=== PATIENT | female | born 1945 | race Hispanic/Latino ===

== ENCOUNTER 2018-03-24 14:44 | Emergency (ER) | payer OTHER ==
--- NOTE | 2018-03-24 16:36 | ER ---
Nurse's Notes [facility] Name: Jayla Torres Age: 72 yrs Sex: Female : 1945 Arrival Date: 03/24/2018 Time: 14:47 Bed 23 Private MD: Diagnosis: Strain of adductor muscle, fascia and tendon of right thigh Presentation: 03/24 14:52 Presenting complaint: Patient states: "I hurt my right leg carrying something heavy aa5 this morning". pt c/o right leg pain, denies fall. Transition of care: patient was not received from another setting of care. Onset of symptoms was March 24, 2018. Risk Assessment: Do you want to hurt yourself or someone else? Patient reports no desire to harm self or others. Initial Sepsis Screen: Does the patient meet any 2 criteria? No. Patient's initial sepsis screen is negative. Does the patient have a suspected source of infection? No. Patient's initial sepsis screen is negative. Care prior to arrival: None. 14:52 Method Of Arrival: Wheelchair aa5 14:52 Acuity: LIZETH 4 aa5 Historical: - Allergies: 14:53 No Known Allergies; aa5 - PMHx: 14:53 Diabetes - NIDDM; Hypertension; aa5 - PSHx: 14:53 ; Hernia repair; Tubal ligation; aa5 - Immunization history:: Adult Immunizations up to date. - Social history:: Smoking status: Patient/guardian denies using tobacco. - Ebola Screening: : No symptoms or risks identified at this time. Screenin:11 Abuse screen: Denies threats or abuse. Denies injuries from another. Nutritional mg2 screening: No deficits noted. Tuberculosis screening: No symptoms or risk factors identified. Fall Risk Gait- Weak (10 pts.). Assessment: 16:09 General: Appears in no apparent distress. comfortable, Behavior is calm, cooperative. mg2 Pain: Complains of pain in right leg and right hamstring Pain does not radiate. Pain currently is 3 out of 10 on a pain scale. Quality of pain is described as aching, Pain began since 7 am Is intermittent, Alleviated by rest, Aggravated by increased activity, repositioning, weight bearing. Neuro: Level of Consciousness is awake, alert, obeys commands, Oriented to person, place, time, situation. Cardiovascular: Capillary refill < 3 seconds Patient's skin is warm and dry. Respiratory: Airway is patent Respiratory effort is even, unlabored, Respiratory pattern is regular, symmetrical. GI: No deficits noted. : No deficits noted. EENT: No deficits noted. Derm: Skin is intact, is healthy with good turgor, Skin is pink, warm \\T\\ dry. normal. Musculoskeletal: Circulation, motion, and sensation intact. Capillary refill < 3 seconds. Injury Description: pain. Vital Signs: 14:53 BP 133 / 75; Pulse 72; Resp 18 S; Temp 98.2(TE); Pulse Ox 98% on R/A; Weight 72.57 kg aa5 (R); Pain 0/10; 16:40 BP 122 / 79; Pulse 60; Resp 18; Pulse Ox 100% on R/A; Pain 2/10; mg2 14:53 Pt reports pain only with movement aa5 ED Course: 14:47 Patient arrived in ED. mr 14:52 Triage completed. aa5 15:19 Smith[facility] Shaw [facility]C [facility] snw 15:19 Devonte Greer MD is Attending Physician. snw 15:56 Lumbar Spine (3 Views) XRAY In Process Unspecified. EDMS 15:56 Femur Right XRAY In Process Unspecified. EDMS 16:06 Lake Gonzales, ABDI is Primary Nurse. mg2 16:06 Arm band placed on. mg2 16:10 No provider procedures requiring assistance completed. Patient did not have IV access mg2 during this emergency room visit. 16:11 Patient has correct armband on for positive identification. mg2 16:53 Jorge wrap to right thigh. mg2 Administered Medications: No medications were administered Outcome: 16:35 Discharge ordered by . snw 16:53 Discharged to home via wheelchair, with family. mg2 16:53 Condition: stable 16:53 Discharge instructions given to patient, family, Instructed on discharge instructions, follow up and referral plans. medication usage, Demonstrated understanding of instructions, follow-up care, medications, Prescriptions given X 1. 16:54 Patient left the ED. mg2 Signatures: Dispatcher [employer] EDMS Smitha Shaw FNP-C [employer]-Wilder Marni OjedaKatalina RN RN aa5 Lake Gonzales RN RN mg2
--- NOTE | 2018-03-24 16:36 | EDPHYS ---
Physician Documentation [facility] Name: Jayla Torres Age: 72 yrs Sex: Female : 1945 Arrival Date: 03/24/2018 Time: 14:47 Bed 23 Private MD: ED Physician Devonte Greer HPI: 03/24 15:40 This 72 yrs old Female presents to ER via Wheelchair with complaints of Leg snw Pain. 15:40 The patient presents with pain, that is acute. The complaints affect the right snw hamstring. Context: The problem was sustained outdoors, resulted from lifting something heavy, the patient can fully bear weight, the patient is able to ambulate, Problem is a result from a previous injury: No. Onset: The symptoms/episode began/occurred suddenly, today. Associated signs and symptoms: The patient has no apparent associated signs or symptoms. Treatment prior to arrival includes: no previous treatment. Severity of symptoms: At their worst the symptoms were moderate. The patient has not experienced similar symptoms in the past. It is unknown whether or not the patient has recently seen a physician. Historical: - Allergies: 14:53 No Known Allergies; aa5 - PMHx: 14:53 Diabetes - NIDDM; Hypertension; aa5 - PSHx: 14:53 ; Hernia repair; Tubal ligation; aa5 - Immunization history:: Adult Immunizations up to date. - Social history:: Smoking status: Patient/guardian denies using tobacco. - Ebola Screening: : No symptoms or risks identified at this time. ROS: 15:40 Constitutional: Negative for fever, chills, and weight loss, Eyes: Negative for injury, snw pain, redness, and discharge, ENT: Negative for injury, pain, and discharge, Neck: Negative for injury, pain, and swelling, Cardiovascular: Negative for chest pain, palpitations, and edema, Respiratory: Negative for shortness of breath, cough, wheezing, and pleuritic chest pain, Abdomen/GI: Negative for abdominal pain, nausea, vomiting, diarrhea, and constipation, Back: Negative for injury and pain, : Negative for injury, bleeding, discharge, and swelling, Skin: Negative for injury, rash, and discoloration, Neuro: Negative for headache, weakness, numbness, tingling, and seizure. 15:40 MS/extremity: Positive for injury or acute deformity, pain, of the right hamstring. Exam: 15:39 Constitutional: This is a well developed, well nourished patient who is awake, alert, snw and in no acute distress. Head/Face: Normocephalic, atraumatic. Eyes: Pupils equal round and reactive to light, extra-ocular motions intact. Lids and lashes normal. Conjunctiva and sclera are non-icteric and not injected. Cornea within normal limits. Periorbital areas with no swelling, redness, or edema. ENT: Nares patent. No nasal discharge, no septal abnormalities noted. Tympanic membranes are normal and external auditory canals are clear. Oropharynx with no redness, swelling, or masses, exudates, or evidence of obstruction, uvula midline. Mucous membranes moist. Neck: Trachea midline, no thyromegaly or masses palpated, and no cervical lymphadenopathy. Supple, full range of motion without nuchal rigidity, or vertebral point tenderness. No Meningismus. Chest/axilla: Normal chest wall appearance and motion. Nontender with no deformity. No lesions are appreciated. Cardiovascular: Regular rate and rhythm with a normal S1 and S2. No gallops, murmurs, or rubs. Normal PMI, no JVD. No pulse deficits. Respiratory: Lungs have equal breath sounds bilaterally, clear to auscultation and percussion. No rales, rhonchi or wheezes noted. No increased work of breathing, no retractions or nasal flaring. Abdomen/GI: Soft, non-tender, with normal bowel sounds. No distension or tympany. No guarding or rebound. No evidence of tenderness throughout. Back: No spinal tenderness. No costovertebral tenderness. Full range of motion. Skin: Warm, dry with normal turgor. Normal color with no rashes, no lesions, and no evidence of cellulitis. Neuro: Awake and alert, GCS 15, oriented to person, place, time, and situation. Cranial nerves II-XII grossly intact. Motor strength 5/5 in all extremities. Sensory grossly intact. Cerebellar exam normal. Normal gait. Psych: Awake, alert, with orientation to person, place and time. Behavior, mood, and affect are within normal limits. 15:39 Musculoskeletal/extremity: Extremities: grossly normal except: noted in the right hamstring: pain, ROM: no acute changes, Circulation is intact in all extremities. Sensation intact. Vital Signs: 14:53 BP 133 / 75; Pulse 72; Resp 18 S; Temp 98.2(TE); Pulse Ox 98% on R/A; Weight 72.57 kg aa5 (R); Pain 0/10; 16:40 BP 122 / 79; Pulse 60; Resp 18; Pulse Ox 100% on R/A; Pain 2/10; mg2 14:53 Pt reports pain only with movement aa5 MDM: 15:19 Patient medically screened. snw 16:38 Data reviewed: vital signs, nurses notes. Data interpreted: Pulse oximetry: on room air snw is 98 %. Interpretation: normal. Counseling: I had a detailed discussion with the patient and/or guardian regarding: the historical points, exam findings, and any diagnostic results supporting the discharge/admit diagnosis, radiology results, the need for outpatient follow up, to return to the emergency department if symptoms worsen or persist or if there are any questions or concerns that arise at home. Special discussion: Based on the history and exam findings, there is no indication for further emergent testing or inpatient evaluation. I discussed with the patient/guardian the need to see the primary care provider for further evaluation of the symptoms. 11 15:06 Order name: Lumbar Spine (3 Views) XRAY snw 03/24 15:25 Order name: Femur Right XRAY snw 03/24 16:53 Order name: Jorge Wrap; Complete Time: 16:53 mg2 Administered Medications: No medications were administered Disposition: 17:08 Co-signature as Attending Physician, Devonte Greer MD. rn Disposition: 03/24/18 16:35 Discharged to Home. Impression: Strain of adductor muscle, fascia and tendon of right thigh. - Condition is Stable. - Discharge Instructions: Hamstring Strain, RICE for Routine Care of Injuries, Heat Therapy. - Prescriptions for Diclofenac Sodium 75 mg Oral Tablet, Delayed Release (E.C.) - take 1 tablet by ORAL route 2 times per day; 10 tablet. - Medication Reconciliation Form, Thank You Letter, Antibiotic Education, Prescription Opioid Use form. - Follow up: Private Physician; When: 1 - 2 days; Reason: Recheck today's complaints, Continuance of care, Re-evaluation by your physician. Follow up: Emergency Department; When: As needed; Reason: Worsening of condition. Signatures: Dispatcher [employer] EDSmitha Vernon, WAITER/WAITRESS CABIN CLASS-C WAITER/WAITRESS CABIN CLASS-Csnw Devonte Greer MD MD rn Calderon, Audri RN RN aa5 Lake Gonzales, ABDI RN mg2 Corrections: (The following items were deleted from the chart) 16:54 16:35 03/24/2018 16:35 Discharged to Home. Impression: Strain of adductor muscle, mg2 fascia and tendon of right thigh. Condition is Stable. Forms are Medication Reconciliation Form, Thank You Letter, Antibiotic Education, Prescription Opioid Use. Follow up: Private Physician; When: 1 - 2 days; Reason: Recheck today's complaints, Continuance of care, Re-evaluation by your physician. Follow up: Emergency Department; When: As needed; Reason: Worsening of condition. snw
--- NOTE | 2018-03-24 17:35 | RAD REPORT ---
EXAM DESCRIPTION: RAD - Femur Right - 03/24/2018 3:58 pm CLINICAL HISTORY: PAIN COMPARISON: No comparisons FINDINGS: Moderate osteoarthritis affects the right hip joint. No fracture, dislocation or AVN. IMPRESSION: Moderate osteoarthritis.
--- NOTE | 2018-03-24 17:37 | RAD REPORT ---
EXAM DESCRIPTION: RAD - Lumbar Spine 3 Views - 03/24/2018 4:02 pm CLINICAL HISTORY: Pain;Radiculopathy Radiculopathy COMPARISON: No comparisons FINDINGS: Diffuse osteopenia is seen. Prominent lower lumbosacral degenerative changes present. No a cute compression deformity seen. Aortic atherosclerosis. IMPRESSION: No acute lumbar spine abnormality. Diffuse osteopenia.
== END 2018-03-24 16:54 | disposition home or self-care (01) ==
LOC: ER 14:44
DX: S76.211A Strain of adductor muscle, fascia and tendon of right thigh, initial encounter (principal); X50.0XXA Overexertion from strenuous movement or load, initial encounter; Y92.89 Other specified places as the place of occurrence of the external cause; E11.9 Type 2 diabetes mellitus without complications; I10 Essential (primary) hypertension; M16.11 Unilateral primary osteoarthritis, right hip; M85.88 Other specified disorders of bone density and structure, other site
CPT/HCPCS: 72100; 99283

== ENCOUNTER 2018-07-11 19:50 | Emergency (ER) | payer OTHER ==
[2018-07-11 21:36] LABS: Absolute Lymphocytes (CBC) 1.7 K/uL (0.7-4.9); Absolute Monocytes 0.4 K/uL (0.1-1.3); Absolute Neutrophil 3.6 K/uL (1.8-8.0); Basophils % 0.5 % (0-1.3); Eosinophils % 0.7 % (0-4.4); Hematocrit 39.3 % (36.0-45.0); Lymphocytes % 29.6 % (15.3-44.8); MPV 9.4 fL (7.6-11.3); Monocytes % 7.1 % (3.3-12.3); RBC Red Blood Cell Count 4.19 M/uL (3.86-4.86)
[2018-07-11 22:28] LABS: BUN Blood Urea Nitrogen 13 mg/dL (7-18); Bicarbonate 29 mmol/L (21-32); Glucose Level 162 mg/dL (74-106); Magnesium 1.8 mg/dL (1.8-2.4); Potassium 4.2 mmol/L (3.5-5.1); Sodium Level 140 mmol/L (136-145); Troponin I < 0.02 ng/mL (0.0-0.045)
[2018-07-11 22:37] LABS: Urine Blood NEGATIVE (NEG); Urine Glucose NEGATIVE (NEG); Urine Protein NEGATIVE (NEG)
--- NOTE | 2018-07-11 23:31 | EDPHYS ---
Physician Documentation [facility] Name: Jayla Torres Age: 72 yrs Sex: Female : 1945 Arrival Date: 07/11/2018 Time: 19:52 Bed 25 Private MD: ED Physician Moustapha Ybarra HPI: 07/11 20:52 This 72 yrs old Female presents to ER via Ambulatory with complaints of High cp Blood Pressure. 20:52 The patient has elevated blood pressure and discovered this at home, with a home device.cp 20:52 Onset: The symptoms/episode began/occurred today, 1 hour(s) ago. Associated signs and cp symptoms: Pertinent positives: dizziness, headache, Pertinent negatives: chest pain, visual changes, vomiting, weakness. 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 Patient reports having difficulty sleeping last night, so she was told she could take OTC melatonin by PCP. Patient reports taking melatonin about 1800 tonight. 20:55 Patient also c/o right shoulder pain times 4 weeks that is worse with use. Denies cp injury. Historical: - Allergies: 19:59 No Known Allergies; ed1 - Home Meds: 19:59 amlodipine 5 mg tab 1 tab once daily [Active]; glipizide 5 mg Oral tr24 2 tabs once ed1 daily [Active]; lovastatin 20 mg Oral tab 1 tab once daily [Active]; losartan 50 mg oral tab 1 tab once daily [Active]; metformin 1,000 mg Oral tab 1 tab 2 times per day [Active]; aspirin 325 mg Oral tab 1 tab once daily [Active]; - PMHx: 19:59 Diabetes - NIDDM; Hypertension; ed1 - PSHx: 19:59 ; Hernia repair; ed1 - Immunization history:: Adult Immunizations unknown, Flu vaccine is up to date. - Social history:: Smoking status: Patient/guardian denies using tobacco. - Ebola Screening: : Patient negative for fever greater than or equal to 101.5 degrees Fahrenheit, and additional compatible Ebola Virus Disease symptoms Patient denies exposure to infectious person Patient denies travel to an Ebola-affected area in the 21 days before illness onset No symptoms or risks identified at this time. ROS: 20:55 Cardiovascular: Negative for chest pain, palpitations. cp 20:55 Eyes: Negative for injury, pain, redness, and discharge. cp 20:55 Constitutional: Negative for body aches, chills, fever, poor PO intake. 20:55 ENT: Negative for drainage from ear(s), ear pain, sore throat, difficulty swallowing, difficulty handling secretions. 20:55 Respiratory: Negative for cough, shortness of breath, wheezing. 20:55 Abdomen/GI: Negative for abdominal pain, nausea, vomiting, and diarrhea, constipation. 20:55 Back: Negative for pain at rest, pain with movement. 20:55 Skin: Negative for cellulitis, rash. 20:55 Neuro: Positive for dizziness, headache, Negative for altered mental status, speech changes, syncope, near syncope, weakness. 20:55 All other systems are negative. Exam: 21:00 Constitutional: The patient appears in no acute distress, alert, awake, cp non-diaphoretic, non-toxic, well developed, well nourished, drowsy 21:00 Head/Face: Normocephalic, atraumatic. Eyes: Pupils equal round and reactive to light, cp extra-ocular motions intact. Lids and lashes normal. Conjunctiva and sclera are non-icteric and not injected. Cornea within normal limits. Periorbital areas with no swelling, redness, or edema. ENT: Nares patent. No nasal discharge, no septal abnormalities noted. Tympanic membranes are normal and external auditory canals are clear. Oropharynx with no redness, swelling, or masses, exudates, or evidence of obstruction, uvula midline. Mucous membranes moist. Neck: Trachea midline, no thyromegaly or masses palpated, and no cervical lymphadenopathy. Supple, full range of motion without nuchal rigidity, or vertebral point tenderness. No Meningismus. Chest/axilla: Normal chest wall appearance and motion. Nontender with no deformity. No lesions are appreciated. 21:00 Cardiovascular: Rate: bradycardic, Rhythm: regular, Pulses: Pulses are 2+ in right radial artery and left radial artery. Heart sounds: murmur, not appreciated, Edema: is not appreciated, JVD: is not appreciated. 21:00 Respiratory: the patient does not display signs of respiratory distress, Respirations: normal, no use of accessory muscles, no retractions, no splinting, no tachypnea, labored breathing, is not present, Breath sounds: are clear throughout, no decreased breath sounds, no stridor, no wheezing. 21:00 Abdomen/GI: Inspection: abdomen appears normal, Palpation: abdomen is soft and non-tender, in all quadrants. 21:00 Back: pain, is absent, ROM is normal. 21:00 Skin: cellulitis, is not appreciated, no rash present. 21:00 Neuro: Orientation: to person, place \T\ time. Mentation: sleepy, Memory: is normal, Cerebellar function: is grossly normal, Motor: moves all fours, strength is normal, Sensation: is normal. 21:00 Musculoskeletal/extremity: Extremities: grossly normal except: noted in the right cp shoulder: tenderness, pain with straight arm raise, There is no evidence of decreased ROM, deformity. 21:42 ECG was reviewed by the Attending Physician. cp Vital Signs: 19:59 BP 135 / 81; Pulse 62; Resp 16; Temp 97.9; Pulse Ox 97% on R/A; Weight 77.11 kg; Height ed1 5 ft. 5 in. (165.10 cm); Pain 3/10; 20:17 BP 140 / 69; Pulse 57; Resp 16; Pulse Ox 98% on R/A; Pain 0/10; lp1 21:00 BP 134 / 69; Pulse 57; Resp 16; Pulse Ox 97% on R/A; lp1 22:00 BP 138 / 75; Pulse 52; Resp 18; Pulse Ox 98% on R/A; lp1 22:08 BP 138 / 75 Supine; Pulse 49; Resp 18; Pulse Ox 98% on R/A; mg2 22:08 BP 141 / 78 Sitting; Pulse 53; Resp 18; Pulse Ox 98% on R/A; mg2 22:08 BP 128 / 75 Standing; Pulse 63; Resp 18; Pulse Ox 98% on R/A; mg2 23:45 BP 129 / 78; Pulse 80; Resp 18; Pulse Ox 100% on R/A; Pain 0/10; mg2 19:59 Body Mass Index 28.29 (77.11 kg, 165.10 cm) ed1 MDM: 20:17 Patient medically screened. cp 21:00 Differential diagnosis: hypertensive crisis, Malignant HTN, CVA, intracerebral cp hemorrhage. 23:30 Data reviewed: vital signs, nurses notes, lab test result(s), EKG, radiologic studies, cp CT scan, plain films. 23:30 Test interpretation: by ED physician or midlevel provider: ECG, plain radiologic cp studies. Counseling: I had a detailed discussion with the patient and/or guardian regarding: the historical points, exam findings, and any diagnostic results supporting the discharge/admit diagnosis, lab results, radiology results, the need for outpatient follow up, a family practitioner, to return to the emergency department if symptoms worsen or persist or if there are any questions or concerns that arise at home. Response to treatment: the patient's symptoms have markedly improved after treatment, and as a result, I will discharge patient. 07/11 20:52 Order name: CBC with Diff cp 07/11 20:52 Order name: BMP cp 07/11 20:52 Order name: Magnesium cp 07/11 20:52 Order name: Troponin I cp 07/11 21:38 Order name: CBC with Automated Diff; Complete Time: 22:43 EDMS 07/11 22:29 Order name: Urine Dipstick--Ancillary (enter results) ar5 07/11 20:52 Order name: EKG; Complete Time: 20:53 cp 07/11 20:52 Order name: EKG - Nurse/Tech; Complete Time: 21:45 cp 07/11 20:52 Order name: XRAY Shoulder RIGHT 2 view cp 07/11 20:52 Order name: CT Head Brain wo Cont cp 07/11 22:29 Order name: Basic Metabolic Panel; Complete Time: 22:43 EDMS 07/11 22:43 Interpretation: Normal except: GLUC 162. cp 07/11 22:29 Order name: Troponin I; Complete Time: 22:43 EDMS 07/11 22:29 Order name: Magnesium; Complete Time: 22:43 EDMS 07/11 22:37 Order name: Urine Dipstick-Ancillary; Complete Time: 22:43 EDMS 07/11 20:52 Order name: Orthostatics; Complete Time: 22:10 cp 07/11 20:52 Order name: Urine Dipstick-Ancillary (obtain specimen); Complete Time: 22:15 cp EC:42 Rate is 49 beats/min. Rhythm is regular. UT interval is normal. QRS interval is normal. cp QT interval is normal. Interpreted by me. Reviewed by me. Administered Medications: No medications were administered Disposition: 07/12 03:36 Co-signature as Attending Physician, Moustapha Ybarra MD. Disposition: 07/11/18 23:30 Discharged to Home. Impression: Pain in right shoulder, Hypertensive heart disease. - Condition is Stable. - Discharge Instructions: Hypertension, Shoulder Pain, How to Take Your Blood Pressure, [id number], Aspirin and Your Heart, Managing Your Hypertension. - Prescriptions for Ibuprofen 800 mg Oral Tablet - take 1 tablet by ORAL route every 8 hours As needed take with food; 30 tablet. - Medication Reconciliation Form, Thank You Letter, Antibiotic Education, Prescription Opioid Use form. - Follow up: Private Physician; When: 07-14-2018; Reason: Recheck today's complaints. - Problem is new. - Symptoms have improved. Signatures: Dispatcher [employer] EDMS Linnea Veras RN RN ed1 Marshall Orozco PA PA cp Starr, Gregory, MD MD Lake Gonzales RN RN mg2 Corrections: (The following items were deleted from the chart) 07/11 23:46 23:30 07/11/2018 23:30 Discharged to Home. Impression: Pain in right shoulder; mg2 Hypertensive heart disease. Condition is Stable. Forms are Medication Reconciliation Form, Thank You Letter, Antibiotic Education, Prescription Opioid Use. Follow up: Private Physician; When: 07-14-2018; Reason: Recheck today's complaints. Problem is new. Symptoms have improved. cp 07/12 17:38 07/10 21:02 Constitutional: The patient appears in no acute distress, alert, awake, cp non-diaphoretic, non-toxic, well developed, well nourished, cp 07/12 17:38 07/10 21:02 Head/Face: Normocephalic, atraumatic. cp cp 07/12 17:38 07/10 21:02 Eyes: Periorbital structures: appear normal, Pupils: equal, round, and cp reactive to light and accomodation, Extraocular movements: intact throughout, Conjunctiva: normal, no exudate, no injection, Sclera: no appreciated abnormality, Lids and lashes: appear normal, bilaterally, cp 07/12 17:38 07/10 21:02 ENT: External ear(s): are unremarkable, Ear canal(s): are normal, clear, cp TM's: are normal, no evidence of bulging, no erythema, Nose: is normal, Mouth: is normal, Posterior pharynx: is normal, airway is patent, no erythema, no exudate, cp 07/12 17:38 07/10 21:02 Neck: ROM/movement: is normal, is supple, without pain, no range of motions cp limitations, no meningismus, no nuchal rigidity, cp 07/12 17:07/10 21:02 Chest/axilla: Inspection: normal, Palpation: is normal, no crepitus, no cp tenderness, cp 07/12 16:38 07/10 21:02 Cardiovascular: Rate: normal, Rhythm: regular, Pulses: Pulses are 2+ in cp right radial artery and left radial artery. Heart sounds: murmur, not appreciated, Edema: is not appreciated, JVD: is not appreciated, cp
--- NOTE | 2018-07-11 23:31 | ER ---
Nurse's Notes [facility] Name: Jayla Torres Age: 72 yrs Sex: Female : 1945 Arrival Date: 07/11/2018 Time: 19:52 Bed 25 Private MD: Diagnosis: Pain in right shoulder;Hypertensive heart disease Presentation: 07/11 19:55 Presenting complaint: Child states: She has problems with her high blood pressure. She ed1 is also having nausea. Denies chest pain. She also has a slight headache. Transition of care: patient was not received from another setting of care. Onset of symptoms was July 10, 2018. Risk Assessment: Do you want to hurt yourself or someone else? Patient reports no desire to harm self or others. Initial Sepsis Screen: Does the patient meet any 2 criteria? No. Patient's initial sepsis screen is negative. Does the patient have a suspected source of infection? No. Patient's initial sepsis screen is negative. Care prior to arrival: None. 19:55 Method Of Arrival: Ambulatory ed1 19:55 Acuity: LIZETH 3 ed1 Triage Assessment: 19:59 General: Appears in no apparent distress. Behavior is calm, cooperative. Pain: ed1 Complains of pain in head Pain currently is 3 out of 10 on a pain scale. Historical: - Allergies: 19:59 No Known Allergies; ed1 - Home Meds: 19:59 amlodipine 5 mg tab 1 tab once daily [Active]; glipizide 5 mg Oral tr24 2 tabs once ed1 daily [Active]; lovastatin 20 mg Oral tab 1 tab once daily [Active]; losartan 50 mg oral tab 1 tab once daily [Active]; metformin 1,000 mg Oral tab 1 tab 2 times per day [Active]; aspirin 325 mg Oral tab 1 tab once daily [Active]; - PMHx: 19:59 Diabetes - NIDDM; Hypertension; ed1 - PSHx: 19:59 ; Hernia repair; ed1 - Immunization history:: Adult Immunizations unknown, Flu vaccine is up to date. - Social history:: Smoking status: Patient/guardian denies using tobacco. - Ebola Screening: : Patient negative for fever greater than or equal to 101.5 degrees Fahrenheit, and additional compatible Ebola Virus Disease symptoms Patient denies exposure to infectious person Patient denies travel to an Ebola-affected area in the 21 days before illness onset No symptoms or risks identified at this time. Screenin:16 Abuse screen: Denies threats or abuse. Denies injuries from another. Nutritional lp1 screening: No deficits noted. Tuberculosis screening: No symptoms or risk factors identified. Fall Risk None identified. Assessment: 20:12 General: Appears in no apparent distress. Behavior is appropriate for age. Pain: Denies lp1 pain. Neuro: Level of Consciousness is awake, alert, obeys commands, Oriented to person, place, time, situation, Patient states headache now resolved. Cardiovascular: Patient's skin is warm and dry. Respiratory: Respiratory effort is even, unlabored. GI: No signs and/or symptoms were reported involving the gastrointestinal system. : No signs and/or symptoms were reported regarding the genitourinary system. EENT: No signs and/or symptoms were reported regarding the EENT system. Derm: Skin is pink, warm \T\ dry. Musculoskeletal: Circulation, motion, and sensation intact. 21:00 Reassessment: Patient appears in no apparent distress at this time. Patient is alert, lp1 oriented x 3, equal unlabored respirations, skin warm/dry/pink. Patient states feeling better. 23:45 Reassessment: Patient denies pain at this time. mg2 Vital Signs: 19:59 BP 135 / 81; Pulse 62; Resp 16; Temp 97.9; Pulse Ox 97% on R/A; Weight 77.11 kg; Height ed1 5 ft. 5 in. (165.10 cm); Pain 3/10; 20:17 BP 140 / 69; Pulse 57; Resp 16; Pulse Ox 98% on R/A; Pain 0/10; lp1 21:00 BP 134 / 69; Pulse 57; Resp 16; Pulse Ox 97% on R/A; lp1 22:00 BP 138 / 75; Pulse 52; Resp 18; Pulse Ox 98% on R/A; lp1 22:08 BP 138 / 75 Supine; Pulse 49; Resp 18; Pulse Ox 98% on R/A; mg2 22:08 BP 141 / 78 Sitting; Pulse 53; Resp 18; Pulse Ox 98% on R/A; mg2 22:08 BP 128 / 75 Standing; Pulse 63; Resp 18; Pulse Ox 98% on R/A; mg2 23:45 BP 129 / 78; Pulse 80; Resp 18; Pulse Ox 100% on R/A; Pain 0/10; mg2 19:59 Body Mass Index 28.29 (77.11 kg, 165.10 cm) ed1 ED Course: 19:52 Patient arrived in ED. as 19:57 Triage completed. ed1 20:00 Arm band placed on left wrist. ed1 20:16 Patient has correct armband on for positive identification. Placed in gown. Bed in low lp1 position. Pulse ox on. NIBP on. 20:17 Marshall Orozco PA is PHCP. cp 20:17 Moustapha Ybarra MD is Attending Physician. cp 20:53 Bibi Camargo, RN is Primary Nurse. lp1 20:[address] vm2 21:07 CT completed. Patient tolerated procedure well. Patient moved to radiology. nj 21:25 Initial lab(s) drawn, by me, sent to lab. lp1 21:45 Warm blanket given. Pillow given. field account director on. jp3 21:45 EKG done, by ED staff, reviewed by Marshall GODOY. jp3 22:29 No provider procedures requiring assistance completed. mg2 23:45 Patient did not have IV access during this emergency room visit. mg2 07/12 02:34 XRAY Shoulder RIGHT 2 view In Process Unspecified. EDMS 02:34 CT Head Brain wo Cont In Process Unspecified. EDMS Administered Medications: No medications were administered Outcome: 07/11 23:30 Discharge ordered by MD. cp 23:45 Discharged to home ambulatory, with family. mg2 23:45 Condition: stable 23:45 Discharge instructions given to patient, family, Instructed on discharge instructions, follow up and referral plans. medication usage, Demonstrated understanding of instructions, follow-up care, medications, Prescriptions given X 1. 23:46 Patient left the ED. mg2 Signatures: Dispatcher [employer] EDMS Lashonda Mancilla Erika RN RN ed1 Bibi Camargo, RN RN lp1 Marshall Orozco PA PA cp Jordan, Nathan nj McGuire, Victoria 2 [place] RN RN mg2 Jacques Fallon jp3 Corrections: (The following items were deleted from the chart) 20:17 20:17 BP 140 / 69; Pulse 57bpm; Resp 16bpm; Pulse Ox 98% RA; lp1 lp1
--- NOTE | 2018-07-12 08:55 | EKG ---
Test Date: 2018-07-11 Test Time: 21:35:32 Branch Logistics Supervisor: BING MEASUREMENT RESULTS: Intervals: Rate: 49 OK: 174 QRSD: 94 QT: 486 QTc: 439 Thornton: P: 34 OK: 174 QRS: 13 T: 56 INTERPRETIVE STATEMENTS: Marked sinus bradycardia Abnormal ECG Compared to ECG 09/07/2016 00:07:44 Sinus rhythm no longer present Electronically Signed On 07-12-18 08:54:25 SHIP ENGINES OPERATING ENGINEER by Ajit Johnson
--- NOTE | 2018-07-12 11:04 | RAD REPORT ---
EXAM DESCRIPTION: RAD - Shoulder Right 2 View - 07/11/2018 9:14 pm CLINICAL HISTORY: PAIN COMPARISON: No comparisons FINDINGS: AC joint degenerative changes are present with inferiorly projecting osteophyte. Mild bambi ohumeral arthritic changes are present. No acute fracture or dislocation.
--- NOTE | 2018-07-14 09:43 | RAD REPORT ---
EXAM DESCRIPTION: Head Brain Wo Cont CLINICAL HISTORY: 72 years Female Dizziness; headache TECHNIQUE: Contiguous axial CT images obtained through the brain without IV contrast. Coronal and sagittal reformatted images also provided. This CT exam was performed according to our departmental dose-optimization program, which includes on e or more of the following dose reduction techniques: automated exposure control, adjustment of the m A and/or kV according to patient size, and/or use of iterative reconstruction technique. COMPARISON: No prior exams provided for comparison. FINDINGS: There is no intracranial hemorrhage, extraaxial collection, or acute transcortical infarct ion. There are a few scattered small dystrophic calcifications, benign. These could represent remote infec tion. No associated peripheral edema or mass effect. The ventricles are normal in size and contour wi thout midline shift. Osseous structures are normal. The paranasal sinuses and mastoid air cells are clear. IMPRESSION: No acute intracranial abnormalities. Electronically signed by: Gayathri Lubin MD 07/11/2018 9:23 PM TAIL RIPPER Due to temporary technical issues with the PACS/Fluency reporting system, reports are being signed by the in house radiologist as a courtesy to ensure prompt reporting. The interpreting radiologist is f ully responsible for the content of the report.
== END 2018-07-11 23:46 | disposition home or self-care (01) ==
LOC: ER 19:50
DX: I11.9 Hypertensive heart disease without heart failure (principal); M25.511 Pain in right shoulder; I10 Essential (primary) hypertension; E11.9 Type 2 diabetes mellitus without complications; Z79.82 Long term (current) use of aspirin
CPT/HCPCS: 36415; 70450; 80048; 81003; 83735; 84484; 85025; 93005; 99285

== ENCOUNTER → 2023-07-27 | Emergency (ER) | payer OTHER ==
[~2023-07-27] MED LIST: FAMOTIDINE 20 MG/2 ML VIAL IV ONE; MAGNESIUM SULFATE 1 gm IVPB 1 GM/100 ML BAG IV ONE; NA CHLORIDE 0.9% 1,000 ML ONE; ONDANSETRON 4 MG/2 ML VIAL ONE
--- OUTSIDE RECORDS SUMMARY | 2023-07-27 15:06 | XMS REPORT | Continuity of Care Document ---
Author Name Unknown Address [address] [facility] [address] [place] [address] [facility] Address [address] [facility] [address] [place] [address] Care Team Providers Care Commercial Roofer Name Role Phone LudwinHéctorVenice Shaila Primary Care Physician MAX WILSON K.HJuan Jose Attending Clinician NIOCLETTE Traylor Attending Clinician Susan Fischer MD, Sendrachel K.H. Attending Clinician [phone] JC SERRANO Attending Clinician Unavailable Jc Maria Attending Clinician [phone] Unknown, Attending Attending Clinician Susan story Doctor Unassigned, [place] Attending Clinician U MAX Roach K.HJuan Jose Admitting Clinician Valentín yao Payers Payer Name Policy Type Policy Number Effective Date Expirati on Date Source [facility] DUAL COMP HMO D SNP [id number] 2023 00:00:00 [place] [id number] 2023 00:00:00 [facility] D[id number] D-SNP 5 [id number] 2023 00:00:00 Problems Condition Name Condition Details Condition Category Status Onset Date Resolution Date Last Treatment Date Treating Clinician Comments Source No known active problems No known active problems Disease [facility] Allergies, Adverse Reactions, Alerts Allergy Name Allergy Type Status Severity Reaction(s) Onset Date Inactive Date Treating Clinician Comments Source NO KNOWN ALLERGIE S Drug Class Active [facility] Social History Social Habit Start Date Stop Date Quantity Comments Source Sexual orientation [facility] Exposure to SARS-CoV-2 (event) 2021-09-18 00:00:00 2021-09-28 12:54:00 Not sure [facility] Sex Assigned At 1945 00:00:00 1945 00:00:00 [facility] Smoking Status Start Date Stop Date Source Tobacco smoking consumption unknown [facility] Medications Ordered Medication Name Filled Medication Name Start Date Stop Date Current Medication? Ordering Clinician Indication Dosage Frequency Signature (SIG) Comments Components Source pravastatin 10 mg tablet 07-10 15:48: 36 Yes 10mg Take 1 tablet by mouth every evening. [facility] pravastatin 10 mg tablet 07-10 15:48: 36 Yes 10mg Take 1 tablet by mouth every evening. [facility] pravastatin 10 mg tablet 07-10 15:48: 36 Yes 10mg Take 1 tablet by mouth every evening. [facility] pravastatin 10 mg tablet 07-10 15:48: 36 Yes 10mg Take 1 tablet by mouth every evening. [facility] pravastatin 10 mg tablet 0 07-10 15:48: 36 Yes 10mg Take 1 tablet by mouth every evening. [facility] pravastatin 10 mg tablet 07-10 15:48: 36 Yes 10mg Take 1 tablet by mouth every evening. [facility] pravastatin 10 mg tablet 07-10 15:48: 36 Yes 10mg Take 1 tablet by mouth every evening. [facility] losartan 50 mg tablet 0 07-10 15:47: 41 Yes 50mg Take 1 tablet by mouth daily. [facility] losartan 50 mg tablet 2023-0 07-10 15:47: 41 Yes 50mg Take 1 tablet by mouth daily. [facility] losartan 50 mg tablet 0 07-10 15:47: 41 Yes 50mg Take 1 tablet by mouth daily. [facility] losartan 50 mg tablet 2023-0 07-10 15:47: 41 Yes 50mg Take 1 tablet by mouth daily. [facility] losartan 50 mg tablet 07-10 15:47: 41 Yes 50mg Take 1 tablet by mouth daily. [facility] losartan 50 mg tablet 07-10 15:47: 41 Yes 50mg Take 1 tablet by mouth daily. [facility] losartan 50 mg tablet 07-10 15:47: 41 Yes 50mg Take 1 tablet by mouth daily. [facility] atorvastati n 20 mg tablet 0 07-10 15:47: 38 Yes 20mg Take 1 tablet by mouth at bedtime. [facility] atorvastati n 20 mg tablet 0 07-10 15:47: 38 Yes 20mg Take 1 tablet by mouth at bedtime. [facility] atorvastati n 20 mg tablet 07-10 15:47: 38 Yes 20mg Take 1 tablet by mouth at bedtime. [facility] atorvastati n 20 mg tablet 07-10 15:47: 38 Yes 20mg Take 1 tablet by mouth at bedtime. [facility] atorvastati n 20 mg tablet 07-10 15:47: 38 Yes 20mg Take 1 tablet by mouth at bedtime. [facility] atorvastati n 20 mg tablet 07-10 15:47: 38 Yes 20mg Take 1 tablet by mouth at bedtime. [facility] amLODIPine 5 mg tablet 07-10 15:47: 36 Yes 5mg Take 1 tablet by mouth daily. [facility] amLODIPine 5 mg tablet 0 07-10 15:47: 36 Yes 5mg Take 1 tablet by mouth daily. [facility] amLODIPine 5 mg tablet 0 07-10 15:47: 36 Yes 5mg Take 1 tablet by mouth daily. [facility] amLODIPine 5 mg tablet 0 07-10 15:47: 36 Yes 5mg Take 1 tablet by mouth daily. [facility] amLODIPine 5 mg tablet 0 07-10 15:47: 36 Yes 5mg Take 1 tablet by mouth daily. [facility] amLODIPine 5 mg tablet 2023-0 -21 15:47: 36 Yes 5mg Take 1 tablet by mouth daily. [facility] amLODIPine 5 mg tablet 2023-0 - 15:47: 36 Yes 5mg Take 1 tablet by mouth daily. [facility] ondansetron (ZOFRAN (PF)) injection 4 mg 2023-0 2-20 01:12: 00 07-09 01:35 :00 No [id number] [facility] ond[facility] (ZOFRAN (PF)) injection 4 mg 20 01:12: 00 07-09 01:35 :00 No [id number] 4mg 4 mg, Intramuscu lar, ONCE, 1 dose, On Sat07/08/23 at 1915, Routine [facility] hydroxychlo roquine (PLAQUENIL) 25 mg/mL oral suspension 2023-0 -19 19:02: 00 Yes Take by mouth. [facility] Omeprazole 20 mg tablet 2023-0 -19 19:02: 00 Yes Take by mouth. [facility] hydroxychlo roquine (PLAQUENIL) 25 mg/mL oral suspension 2023-0 -19 19:02: 00 Yes Take by mouth. [facility] Omeprazole 20 mg tablet 2023-0 -19 19:02: 00 Yes Take by mouth. [facility] hydroxychlo roquine (PLAQUENIL) 25 mg/mL oral suspension 2023-0 -19 19:02: 00 Yes Take by mouth. [facility] Omeprazole 20 mg tablet 2023-0 2-19 19:02: 00 Yes Take by mouth. [facility] hydroxychlo roquine (PLAQUENIL) 25 mg/mL oral suspension 2023-0 2-19 19:02: 00 Yes Take by mouth. [facility] Omeprazole 20 mg tablet 4-0 2-19 19:02: 00 Yes Take by mouth. [facility] hydroxychlo roquine (PLAQUENIL) 25 mg/mL oral suspension 4-0 2-19 19:02: 00 Yes Take by mouth. [facility] Omeprazole 20 mg tablet 0 07-08 19:02: 00 Yes Take by mouth. [facility] hydroxychlo roquine (PLAQUENIL) 25 mg/mL oral suspension 0 07-08 19:02: 00 Yes Take by mouth. [facility] Omeprazole 20 mg tablet 2023-0 07-08 19:02: 00 Yes Take by mouth. [facility] hydroxychlo roquine (PLAQUENIL) 25 mg/mL oral suspension 07-08 19:02: 00 Yes Take by mouth. [facility] Omeprazole 20 mg tablet 2023-0 07-08 19:02: 00 Yes Take by mouth. [facility] metFORMIN 850 mg tablet 2023-0 07-08 18:55: 04 Yes 850mg Take 1 tablet by mouth 2 (two) times daily with meals. [facility] losartan 50 mg tablet 2023-0 07-08 18:55: 04 Yes 50mg Take 1 tablet by mouth daily. [facility] glipiZIDE 5 mg tablet 0 07-08 18:55: 04 Yes 5mg Take 1 tablet by mouth 2 (two) times daily. [facility] amLODIPine 5 mg tablet 07-08 18:55: 04 Yes 5mg Take 1 tablet by mouth daily. [facility] pravastatin 10 mg tablet 07-08 18:55: 04 Yes 10mg Take 1 tablet by mouth every evening. [facility] atorvastati n 20 mg tablet 2023-0 07-08 18:55: 04 Yes 20mg Take 1 tablet by mouth at bedtime. [facility] metFORMIN 850 mg tablet 2023-0 07-08 18:55: 04 Yes 850mg Take 1 tablet by mouth 2 (two) times daily with meals. [facility] glipiZIDE 5 mg tablet 2023-0 07-08 18:55: 04 Yes 5mg Take 1 tablet by mouth 2 (two) times daily. [facility] metFORMIN 850 mg tablet 2023-0 07-08 18:55: 04 Yes 850mg Take 1 tablet by mouth 2 (two) times daily with meals. [facility] glipiZIDE 5 mg tablet 2023-0 07-08 18:55: 04 Yes 5mg Take 1 tablet by mouth 2 (two) times daily. [facility] metFORMIN 850 mg tablet 2023-0 07-08 18:55: 04 Yes 850mg Take 1 tablet by mouth 2 (two) times daily with meals. [facility] glipiZIDE 5 mg tablet 2023-0 07-08 18:55: 04 Yes 5mg Take 1 tablet by mouth 2 (two) times daily. [facility] metFORMIN 850 mg tablet 2023-0 07-08 18:55: 04 Yes 850mg Take 1 tablet by mouth 2 (two) times daily with meals. [facility] glipiZIDE 5 mg tablet 2023-0 07-08 18:55: 04 Yes 5mg Take 1 tablet by mouth 2 (two) times daily. [facility] metFORMIN 850 mg tablet 2023-0 07-08 18:55: 04 Yes 850mg Take 1 tablet by mouth 2 (two) times daily with meals. [facility] glipiZIDE 5 mg tablet 2023-0 07-08 18:55: 04 Yes 5mg Take 1 tablet by mouth 2 (two) times daily. [facility] metFORMIN 850 mg tablet 2023-0 07-08 18:55: 04 Yes 850mg Take 1 tablet by mouth 2 (two) times daily with meals. [facility] glipiZIDE 5 mg tablet 2023-0 07-08 18:55: 04 Yes 5mg Take 1 tablet by mouth 2 (two) times daily. [facility] metFORMIN 850 mg tablet 2023-0 07-08 18:55: 04 Yes 850mg Take 1 tablet by mouth 2 (two) times daily with meals. [facility] glipiZIDE 5 mg tablet 2023-0 07-08 18:55: 04 Yes 5mg Take 1 tablet by mouth 2 (two) times daily. [facility] famotidine 40 mg tablet 07-08 00:00: 00 08-07 04:59 :00 Yes [id number] 40mg Take 1 tablet by mouth daily for 30 days. [facility] famotidine 40 mg tablet 4-0 2-19 00:00: 00 08-07 04:59 :00 Yes [id number] 40mg Take 1 tablet by mouth daily for 30 days. [facility] famotidine 40 mg tablet 4-0 2-19 00:00: 00 08-07 04:59 :00 Yes [id number] 40mg Take 1 tablet by mouth daily for 30 days. [facility] famotidine 40 mg tablet 2023-0 2-19 00:00: 00 08-07 04:59 :00 Yes [id number] 40mg Take 1 tablet by mouth daily for 30 days. [facility] famotidine 40 mg tablet 4-0 2-19 00:00: 00 08-07 04:59 :00 Yes [id number] 40mg Take 1 tablet by mouth daily for 30 days. [facility] famotidine 40 mg tablet 2023-0 2-19 00:00: 00 08-07 04:59 :00 Yes [id number] 40mg Take 1 tablet by mouth daily for 30 days. [facility] famotidine 40 mg tablet 2023-0 2-19 00:00: 00 08-07 04:59 :00 Yes [id number] 40mg Take 1 tablet by mouth daily for 30 days. [facility] cefdinir 300 mg capsule 4-0 2-19 00:00: 00 07-16 05:59 :00 Yes [id number] 300mg Take 1 capsule by mouth every 12 (twelve) hours for 7 days. [facility] cefdinir 300 mg capsule 4-0 2-19 00:00: 00 07-16 05:59 :00 Yes [id number] 300mg Take 1 capsule by mouth every 12 (twelve) hours for 7 days. [facility] cefdinir 300 mg capsule 4-0 2-19 00:00: 00 07-16 05:59 :00 Yes [id number] 300mg Take 1 capsule by mouth every 12 (twelve) hours for 7 days. [facility] cefdinir 300 mg capsule 0 -19 00:00: 00 07-16 05:59 :00 No [id number] 300mg Take 1 capsule by mouth every 12 (twelve) hours for 7 days. [facility] ondansetron 8 mg tablet 2023-0 - 00:00: 00 07-14 05:59 :00 Yes [id number] 8mg Take 1 tablet by mouth every 8 (eight) hours as needed for Nausea and Vomiting (N/V) for up to 5 days. [facility] ondansetron 8 mg tablet 2023-0 07-08 00:00: 00 07-14 05:59 :00 Yes [id number] 8mg Take 1 tablet by mouth every 8 (eight) hours as needed for Nausea and Vomiting (N/V) for up to 5 days. [facility] ondansetron 8 mg tablet 0 07-08 00:00: 00 07-14 05:59 :00 Yes [id number] 8mg Take 1 tablet by mouth every 8 (eight) hours as needed for Nausea and Vomiting (N/V) for up to 5 days. [facility] ondansetron 8 mg tablet 0 07-08 00:00: 00 07-14 05:59 :00 No [id number] 8mg Take 1 tablet by mouth every 8 (eight) hours as needed for Nausea and Vomiting (N/V) for up to 5 days. [facility] glipiZIDE 5 mg tablet 2022-05 15:08: 50 Yes 5mg Take 5 mg by mouth 2 (two) times daily. [facility] glipiZIDE 5 mg tablet 2022-05 15:08: 50 Yes 5mg Take 5 mg by mouth 2 (two) times daily. [facility] glipiZIDE 5 mg tablet 2022-05 15:08: 50 Yes 5mg Take 5 mg by mouth 2 (two) times daily. [facility] glipiZIDE 5 mg tablet 2022-05 15:08: 50 Yes 5mg Take 5 mg by mouth 2 (two) times daily. [facility] glipiZIDE 5 mg tablet 2022-05 15:08: 50 Yes 5mg Take 5 mg by mouth 2 (two) times daily. [facility] glipiZIDE 5 mg tablet 2022-05 15:08: 50 Yes 5mg Take 5 mg by mouth 2 (two) times daily. [facility] amLODIPine 5 mg tablet 2022-05 14:57: 42 Yes 5mg Take 5 mg by mouth daily. [facility] amLODIPine 5 mg tablet 2022-05 14:57: 42 Yes 5mg Take 5 mg by mouth daily. [facility] amLODIPine 5 mg tablet 2022-05 14:57: 42 Yes 5mg Take 5 mg by mouth daily. [facility] amLODIPine 5 mg tablet 2022-05 14:57: 42 Yes 5mg Take 5 mg by mouth daily. [facility] amLODIPine 5 mg tablet 2022-05 14:57: 42 Yes 5mg Take 5 mg by mouth daily. [facility] amLODIPine 5 mg tablet 2022-05 14:57: 42 Yes 5mg Take 5 mg by mouth daily. [facility] metFORMIN 850 mg tablet 2022-05 14:57: 41 Yes 850mg Take 850 mg by mouth 2 (two) times daily with meals. [facility] metFORMIN 850 mg tablet 2022-05 14:57: 41 Yes 850mg Take 850 mg by mouth 2 (two) times daily with meals. [facility] metFORMIN 850 mg tablet 2022-05 14:57: 41 Yes 850mg Take 850 mg by mouth 2 (two) times daily with meals. [facility] metFORMIN 850 mg tablet 2022-05 14:57: 41 Yes 850mg Take 850 mg by mouth 2 (two) times daily with meals. [facility] metFORMIN 850 mg tablet 2022-05 14:57: 41 Yes 850mg Take 850 mg by mouth 2 (two) times daily with meals. [facility] metFORMIN 850 mg tablet 2022-05 14:57: 41 Yes 850mg Take 850 mg by mouth 2 (two) times daily with meals. [facility] pravastatin 10 mg tablet 2022-05 14:57: 40 Yes 10mg Take 10 mg by mouth every evening. [facility] pravastatin 10 mg tablet 2022-05 14:57: 40 Yes 10mg Take 10 mg by mouth every evening. [facility] pravastatin 10 mg tablet 2022-05 14:57: 40 Yes 10mg Take 10 mg by mouth every evening. [facility] pravastatin 10 mg tablet 2022-05 14:57: 40 Yes 10mg Take 10 mg by mouth every evening. [facility] pravastatin 10 mg tablet 2022-05 14:57: 40 Yes 10mg Take 10 mg by mouth every evening. [facility] pravastatin 10 mg tablet 2022-05 14:57: 40 Yes 10mg Take 10 mg by mouth every evening. [facility] losartan 50 mg tablet 2022-05 14:57: 38 Yes 50mg Take 50 mg by mouth daily. [facility] losartan 50 mg tablet 2022-05 14:57: 38 Yes 50mg Take 50 mg by mouth daily. [facility] losartan 50 mg tablet 2022-05 14:57: 38 Yes 50mg Take 50 mg by mouth daily. [facility] losartan 50 mg tablet 2022-05 14:57: 38 Yes 50mg Take 50 mg by mouth daily. [facility] losartan 50 mg tablet 2022-05 14:57: 38 Yes 50mg Take 50 mg by mouth daily. [facility] losartan 50 mg tablet 2022-05 14:57: 38 Yes 50mg Take 50 mg by mouth daily. [facility] metFORMIN 850 mg tablet 5-12 13:17: 56 Yes 850mg Take 850 mg by mouth 2 (two) times daily with meals. [facility] losartan 50 mg tablet 09-28 13:17: 56 Yes 50mg Take 50 mg by mouth daily. [facility] glipiZIDE 5 mg tablet 09-28 13:17: 56 Yes 5mg Take 5 mg by mouth 2 (two) times daily. [facility] amLODIPine 5 mg tablet 09-28 13:17: 56 Yes 5mg Take 5 mg by mouth daily. [facility] pravastatin 10 mg tablet 09-28 13:17: 56 Yes 10mg Take 10 mg by mouth every evening. [facility] metFORMIN 850 mg tablet 09-28 13:17: 56 Yes 850mg Take 850 mg by mouth 2 (two) times daily with meals. [facility] losartan 50 mg tablet 09-28 13:17: 56 Yes 50mg Take 50 mg by mouth daily. [facility] glipiZIDE 5 mg tablet 09-28 13:17: 56 Yes 5mg Take 5 mg by mouth 2 (two) times daily. [facility] amLODIPine 5 mg tablet 09-28 13:17: 56 Yes 5mg Take 5 mg by mouth daily. [facility] pravastatin 10 mg tablet 09-28 13:17: 56 Yes 10mg Take 10 mg by mouth every evening. [facility] metFORMIN 850 mg tablet 09-28 13:17: 56 Yes 850mg Take 850 mg by mouth 2 (two) times daily with meals. [facility] losartan 50 mg tablet 09-28 13:17: 56 Yes 50mg Take 50 mg by mouth daily. [facility] glipiZIDE 5 mg tablet 09-28 13:17: 56 Yes 5mg Take 5 mg by mouth 2 (two) times daily. [facility] amLODIPine 5 mg tablet 09-28 13:17: 56 Yes 5mg Take 5 mg by mouth daily. [facility] pravastatin 10 mg tablet 09-28 13:17: 56 Yes 10mg Take 10 mg by mouth every evening. [facility] Immunizations Ordered Immunization Name Filled Immunization Name Date Status Comments Source Influenza Virus Vaccine,quad Im,preserve Free 65+ (FLUAD) Unknown Completed [facility] Influenza Virus Vaccine,quad Im,preserve Free 65+ (FLUAD) Unknown Completed [facility] Influenza Virus Vaccine,quad Im,preserve Free 65+ (FLUAD) Unknown Completed [facility] Influenza Virus Vaccine,quad Im,preserve Free 65+ (FLUAD) Unknown Completed [facility] Influenza Virus Vaccine,quad Im,preserve Free 65+ (FLUAD) Unknown Completed [facility] Influenza Virus Vaccine,quad Im,preserve Free 65+ (FLUAD) Unknown Completed [facility] Influenza Virus Vaccine,quad Im,preserve Free 65+ (FLUAD) Unknown Completed [facility] Influenza Virus Vaccine,quad Im,preserve Free 65+ (FLUAD) Unknown Completed [facility] Influenza Virus Vaccine,quad Im,preserve Free 65+ (FLUAD) Unknown Completed [facility] Influenza Virus Vaccine,quad Im,preserve Free 65+ (FLUAD) Unknown Completed [facility] Influenza Virus Vaccine,quad Im,preserve Free 65+ (FLUAD) Unknown Completed [facility] Influenza Virus Vaccine,quad Im,preserve Free 65+ (FLUAD) Unknown Completed [facility] Influenza Virus Vaccine,quad Im,preserve Free 65+ (FLUAD) Unknown Completed [facility] Influenza Virus Vaccine,quad Im,preserve Free 65+ (FLUAD) Unknown Completed [facility] Vital Signs Vital Name Observation Time Observation Value Comments S ource Systolic blood pressure 2023-07-10 21:30:00 117 mm[Hg] [facility] Diastolic blood pressure 2023-07-10 21:30:00 67 mm[Hg] [facility] Heart rate 2023-07-10 21:30:00 65 /min [facility] Body temperature 2023-07-10 21:30:00 36.33 Rachael [facility] Respiratory rate 2023-07-10 21:30:00 17 /min [facility] Body weight 2023-07-10 21:30:00 64.411 kg [facility] Oxygen saturation in Arterial blood by Pulse oximetry 2023-07-10 21:30:00 95 /min [facility] Systolic blood pressure 2023-07-09 00:57:00 152 mm[Hg] [facility] Diastolic blood pressure 2023-07-09 00:57:00 83 mm[Hg] [facility] Heart rate 2023-07-09 00:54:00 65 /min [facility] Body temperature 2023-07-09 00:54:00 37.06 Rachael [facility] Body weight 2023-07-09 00:54:00 63.685 kg [facility] Oxygen saturation in Arterial blood by Pulse oximetry 2023-07-09 00:54:00 99 /min [facility] Systolic blood pressure 2023-04-09 20:52:00 119 mm[Hg] [facility] Diastolic blood pressure 2023-04-09 20:52:00 66 mm[Hg] [facility] Heart rate 2023-04-09 20:52:00 69 /min [facility] Body temperature 2023-04-09 20:52:00 36 Rachael [facility] Respiratory rate 2023-04-09 20:52:00 17 /min [facility] Body weight 2023-04-09 20:52:00 66.951 kg [facility] Oxygen saturation in Arterial blood by Pulse oximetry 2023-04-09 20:52:00 96 /min [facility] Systolic blood pressure 2021-09-28 18:05:00 115 mm[Hg] [facility] Diastolic blood pressure 2021-09-28 18:05:00 70 mm[Hg] [facility] Heart rate 2021-09-28 18:05:00 72 /min [facility] Respiratory rate 2021-09-28 18:05:00 15 /min [facility] Body weight 2021-09-28 18:05:00 67.586 kg [facility] Oxygen saturation in Arterial blood by Pulse oximetry 2021-09-28 18:05:00 95 /min [facility] Procedures Procedure Date / Time Performed Performing Clinician Source POCT URINALYSIS 2023-07-09 01:57:00 [facility] COMPLETE 2023-06-11 19:36:28 Max Wilson [facility] INSURANCE CORRESPONDENCE 2023-06-05 06:01:00 Doc tor Unassigned, [place] [facility] EXTERNAL PROVIDER - [facility] 2023-05-28 06:01:00 Doctor Unassigned, [place] [facility] HB ECG ROUTINE & RHYTHM STRIP 2023-04-09 20:55:12 Max Wilson [facility] FLU VACC(),65+YR,0.5 ML,IM,ADJUVANTED,QUAD(FLU AD) 2023-04-09 20:50:32 Max Wilson [facility] CONSENT/REFUSAL FOR DIAGNOSIS AND TREATMENT 2023-04-09 20:06:27 Doctor Unassigned, [place] [facility] EXTERNAL PROVIDER - [facility] 2021-11-09 05:01:00 Doctor Unassigned, [place] [facility] HB ECG ROUTINE & RHYTHM STRIP 2021-09-28 18:12:50 Max Wilson [facility] Encounters Start Date/Time End Date/Time Encounter Type Admission Type Attending Clinicians Care Facility Care Department Encounter ID Source 2023-11-05 13:30:00 2023-11-05 13:30:00 Outpatient MAX LE [facility] [id number] [facility] 2023-07-30 11:00:00 2023-07-30 11:00:00 Outpatient NICOLETTE FRITZ [id number] Rose Cervantes 2023-07-30 00:00:00 2023-07-30 00:00:00 Outpatient MAX LE [facility] [id number] [facility] 2023-07-25 00:00:00 2023-07-25 00:00:00 Telephone Max Wilson [facility] [id number] [facility] 2023-07-10 15:30:00 2023-07-10 16:08:44 Outpatient R MAX WILSON [facility] [id number] [facility] 2023-07-10 15:30:00 2023-07-10 16:08:44 Office Visit Max Wilson [facility] [id number] [facility] 2023-07-08 18:40:00 2023-07-08 19:23:15 Outpatient R JC SERRANO [facility] [id number] [facility] 2023-07-08 18:40:00 2023-07-08 19:23:15 Urgent Care Jc Serrano Unknown, Attending [facility] 1..840.114 350.1.13.10 4.2.7.2.686 [id number] [facility] 2023-06-17 00:00:00 2023-06-17 00:00:00 Telephone Max Wilson [facility] 1..840.114 350.1.13.10 4.2.7.2.686 [id number] [facility] 2023-06-11 12:42:41 2023-06-11 23:59:00 Outpatient R MAX WILSON [facility] [id number] [facility] 2023-06-11 12:42:41 2023-06-11 23:59:00 Hospital Encounter Max Wilson [facility] 1..840.114 350.1.13.10 4.2.7.2.686 [id number] [facility] 2023-06-05 00:00:00 2023-06-05 00:00:00 Orders Only Doctor Unassigned, [place] [facility] 1.2.840.114 350.1.13.10 4.2.7.2.686 [id number] [facility] 2023-05-28 07:58:15 2023-05-28 07:58:15 Outpatient [facility] 0109 Torrey Otto 2023-05-28 00:00:00 2023-05-28 00:00:00 Orders Only Doctor Unassigned, [place] [facility] 1.2840.114 350.1.13.10 4.2.7.2.686 [id number] [facility] 2023-05-27 15:22:46 2023-05-27 15:22:46 Outpatient [facility] 0108 Torrey Otto 2023-04-09 14:00:00 2023-04-09 15:15:19 Outpatient R MAX WILSON [facility] [id number] [facility] 2023-04-09 14:00:00 2023-04-09 15:15:19 Office Visit Max Wilson [facility] 1.2.840.114 350.1.13.10 4.2.7.2.686 [id number] [facility] 2023-04-09 00:00:00 2023-04-09 00:00:00 Orders Only Doctor Unassigned, [place] [facility] 1.2840.114 350.1.13.10 4.2.7.2.686 [id number] [facility] 2023-02-20 09:07:29 2023-02-20 09:07:29 Outpatient [facility] 1004 Torrey Otto 2023-02-14 16:06:03 2023-02-14 16:06:03 Outpatient [facility] [id number] Torrey Otto 2021-12-13 14:00:00 2021-12-13 14:00:00 Outpatient MAX LE [facility] [id number] [facility] 2021-12-13 14:00:00 2021-12-13 14:00:00 Outpatient R MAX WILSON [facility] [id number] [facility] 2021-11-09 00:00:00 2021-11-09 00:00:00 Orders Only Doctor Unassigned, [place] [facility] 1.2.840.114 350.1.13.10 4.2.7.2.686 [id number] [facility] 2021-10-18 16:00:00 2021-10-18 16:00:00 Outpatient R MAX WILSON [facility] [id number] [facility] 2021-10-11 00:00:00 2021-10-11 00:00:00 Orders Only Doctor Unassigned, [place] [facility] 1.2.840.114 350.1.13.10 4.2.7.2.686 [id number] [facility] 2021-09-28 13:00:00 2021-09-28 13:43:00 Outpatient R MAX WILSON [facility] [id number] [facility] 2021-09-28 13:00:00 2021-09-28 13:43:00 Office Visit Max Wilson [facility] 1.2.840.114 350.1.13.10 4.2.7.2.686 [id number] [facility] 2021-09-28 13:00:00 2021-09-28 13:43:00 Outpatient R MAX WILSON [facility] [id number] [facility] 2021-09-28 00:00:00 2021-09-28 00:00:00 Orders Only Doctor Unassigned, [place] [facility] 1.2.840.114 350.1.13.10 4.2.7.2.686 [id number] [facility] Results Test Description Test Time Test Comments Results Result Co [facility] 02:39:23* Test Item Value Reference Range Interpretation Comme nts Height (test code = 2949088540) 65 in Weight (test code = 3598468786) 147 lbs Systolic BP (test code = 0228263393) 123 mmHg Diastolic BP (test code = 9701495590) 77 mmHg Heart Rate (test code = 5644743978) 74 bpm BSA (test code = 7159747951) 1.74 m2 LVIDD (test code = 1892719813) 4.20 cm Left Ventricular End Diastolic Volume by Teichholz Method (test code = 7787520) 77.0 mL IVS (test code = 5024265783) 1.45 cm Interventricular Septum Diastolic Thickness by 2D (test code = 0710505) 1.45 cm LVPWD (test code = 6409263351) 1.32 cm PW (test code = 0260377097) 1.32 cm 0.6-1.1 EF(Teich) (test code = 2229760418) 65.60 % LVIDS (test code = 5521273413) 2.70 cm Left Ventricular End Systolic Volume by Teichholz Method (test code = 9278407) 26.5 mL FS (test code = 9075570191) 36 % EF - 2D (test code = 68882445) 65.60 % LVOT diameter (test code = 3571473172) 2.00 cm LVOT area (test code = 2720458525) 3.10 cm2 ACS (test code = 7846140271) 2.15 cm Ao root diam (test code = 4709969455) 3.10 cm Aortic root (test code = 6365431729) 3.1 cm Ao root annulus (test code = 6024043253) 3.1 cm LA size (test code = 0991568681) 4.0 cm E wave decelartion time (test code = 3780096228) 0.30 s MV Peak E Kael (test code = 9459822223) 67.6 cm/s MV Peak A Kael (test code = 5583080411) 99.6 cm/s E/A ratio (test code = 1986515933) 0.68 ratio MV Prop V (test code = 0950676283) 41.60 cm/s Tapse (test code = 1540962217) 1.56 cm TR Peak Kael (test code = 3806091764) 220.0 cm/s Triscuspid Valve Regurgitation Peak Gradient (test code = 0742822153) 19.4 mmHg LVOT stroke volume (test code = 9795009010) 82.00 cm3 LVOT peak kael (test code = 9087228263) 110.6 cm/s LVOT mn grad (test code = 0573838484) 2.4 mmHg AV LVOT peak gradient (test code = 5713243274) 4.9 mmHg LVOT peak VTI (test code = 0876568408) 26.2 cm LV V1 mean (test code = 4492303435) 71.60 cm/s Aortic valve mean velocity (test code = 3001644287) 98.9 cm/s Ao peak kael (test code = 2724791952) 162.7 cm/s Ao VTI (test code = 9841192319) 34.1 cm AV area by cont VTI (test code = 2330164235) 2.4 cm2 AV area peak kael (test code = 5113983651) 2.1 cm2 Ao max PG (test code = 3464421956) 10.60 mm[Hg] AV peak gradient (test code = 1390556541) 10.6 mmHg AV valve area (test code = 7060869505) 2.40 cm2 AV mean gradient (test code = 0136639867) 4.6 mmHg Radiology Study observation (narrative) (test code = 32897-9) CADEN (test code = CADEN) ?Left?Ventricle: Left ventricle size is normal. Mildly increased wall thickness. Normal wall motion. Normal systolic function with a visually estimated EF of 55 - 60%. There is impaired relaxation. Normal left ventricular filling pressure. ?Tricuspid?Valve: Tricuspid valve structure is normal. Trace transvalvular regurgitation. Right ventricular systolic pressure is 15-20 mmHg. ?RA pressure is 0-5 mmHg. ?Left?Atrium: Left atrium is mildly dilated. ?Aorta: Mildly enlarged ascending aorta 3.7cm. Left VentricleLeft ventricle size is normal. Mildly increased wall thickness. Normal wall motion. Normal systolic function with a visually estimated EF of 55 - 60%. There is impaired relaxation. Normal left ventricular filling pressure.Right VentricleRight ventricle size is normal. Normal systolic function.Left AtriumLeft atrium is mildly dilated.Right AtriumRight atrium size is normal.Mitral ValveMildly calcified leaflets. Mild mitral annular calcification. Trace transvalvular regurgitation.Tricusp id ValveTricuspid valve structure is normal. Trace transvalvular regurgitation. Right ventricular systolic pressure is 15-20 mmHg. RA pressure is 0-5 mmHg.Aortic ValveTricuspid. Mildly calcified cusps.Pulmonic ValveNot well visualized.Ascending AortaMildly enlarged ascending aorta 3.7cm.PericardiumNo pericardial effusion.Study DetailsStudy quality was adequate. A complete echocardiogram was performed using 2D, color flow Doppler and spectral Doppler. The apical, parasternal and subcostal views were obtained. [facility]. PYLORI (BREATH)2023-05-29 16:29:14* Test Item Value Reference Range Interpretation Comme [facility] H. PYLORI (BREATH) (test code = 32207) NEGATIVE NEGATIVE UNLESS OTHER FORD INDICATED, ALL TESTING PERFORMED AT [facility] [address] [place] [address] DIRECTOR HOME HEALTH: MATT MADSEN M.D. CLIA NUMBER [id number] [facility] [place]. [id number] HEMOGLOBIN [id number] 04:19:57* Test Item Value Reference Range Interpretation Comme [facility] HEMOGLOBIN A1c (test code = 23363) 7.1 % 4.2-5.6 H [employer] DIAB[employer] S ASSOCIATION GUIDELINES FOR HGB A1C: PREDIABETES/INCREASED RISK . . . . . . . 5.7-6.4% DIAGNOSIS OF DIABETES . . . . . . . . . >=6.5% WITH CONFIRMATION OR APPROPRIATE SYMPTOMS NOTE: ASSAY MAY BE AFFECTED BY HEMOGLOBINOPATHIES (SICKLE CELL ANEMIA, S-C DISEASE, OTHERS) OR ARTIFICIALLY LOWERED BY DECREASED RED CELL SURVIVAL (HEMOLYTIC ANEMIAS, BLOOD LOSS, ETC.). CONSIDER ALTERNATE TESTING OR LABORATORY CONSULTATION. ALBUMIN/CREATININE RATIO, URINE, [id number] 04:00:28* Test Item Value Reference Range Interpretation Comme nts CREATININE, URINE, CONC. (test code = 2072) 33.8 MG/DL NOT ESTAB ALBUMIN, URINE, RANDOM (test code = 91958) 0.6 MG/DL NOT ESTAB CALC ALBUMIN/CREAT, RND (test code = 88025) 18 MG/G <30 Note: Albumin/Cr eatinine ratio reference interval reflects ADA and NKF guidelines. UNLESS OTHERWISE INDICATED, ALL TESTING PERFORMED AT [facility] [address] [place] [address] DIRECTOR HOME HEALTH: MATT MADSEN M.D. [place] NUMBER [id number] [facility] [place]. [id number] COMPREHENSIVE METABOLIC [id number] 03:39:34* Test Item Value Reference Range Interpretation Comme nts GLUCOSE (test code = 7) 149 MG/DL 70-99 H BUN (test code = 2207) 16 MG/DL 8-23 CREATININE (test code = 2214) 0.59 MG/DL 0.60-1.30 L eGFR (2020 CKD-EPI) (test co de = 26135) 94 ML/MIN/1.73 >60 CALC BUN/CREAT (test code = 2235) 27 RATIO 6-28 SODIUM (test code = 2231) 140 MEQ/L 133-146 POTASSIUM (test code = 2228) 4.8 MEQ/L 3.5-5.4 CHLORIDE (test code = 2215) 101 MEQ/L 95-107 CARBON DIOXIDE (test code = 2206) 28 MEQ/L 19-31 CALCIUM (test code = 2209) 9.8 MG/DL 8.5-10.5 PROTEIN, TOTAL (test code = 2229) 6.9 G/DL 6.1-8.3 ALBUMIN (test code = 220) 4.5 G/DL 3.5-5.2 CALC GLOBULIN (test code = 2240) 2.4 G/DL 1.9-3.7 CALC A/G RATIO (test code = 2234) 1.9 RATIO 1.0-2.6 BILIRUBIN, TOTAL (test code = 2207) 0.7 MG/DL <=1.2 ALKALINE PHOSPHATASE (test code = 2204) 84 U/L 40-142 AST (test code = 2218) 33 U/L 9-40 ALT (test code = 2219) 23 U/L 5-40 LIPID [id number] 03:39:34* Test Item Value Reference Range Interpretation Comme nts CHOLESTEROL (test code = 2210) 117 MG/DL <200 TRIGLYCERIDES (test code = 2232) 60 MG/DL <150 HDL CHOLESTEROL (test code = 2220) 57 MG/DL >39 CALC LDL CHOL (test code = 2237) 46 MG/DL <100 NOTE: CALCULATED LDL IS BASED ON JOSE-CLMEENTE METHOD WHICHINCLUDES ADJUSTABLE TRIGLYCERIDE:VLDL CHOLESTEROL RATIO.THIS FACTOR VARIES BY MEASURED TRIGLYCERIDE AND NON-HDLCHOLESTEROL CONCENTRATIONS WITH INCREASED CALCULATED LDL SEENIN HIGHER TRIGLYCERIDE OR LOWER NON-HDL SPECIMENS. FOR MOREINFORMATION, SEE CLIENT ANNOUNCEMENT AT [email or web address] RISK RATIO LDL/HDL (test code = 2238) 0.81 RATIO <3.22 LIPID [id number] 06:02:27* Test Item Value Reference Range Interpretation Comme nts CHOLESTEROL (test code = 2210) 144 MG/DL <200 TRIGLYCERIDES (test code = 2232) 63 MG/DL <150 HDL CHOLESTEROL (test code = 2220) 51 MG/DL >39 CALC LDL CHOL (test code = 2237) 79 MG/DL <100 NOTE: CALCULATED LDL IS BASED ON JOSE-CLEMENTE METHOD WHICHINCLUDES ADJUSTABLE TRIGLYCERIDE:VLDL CHOLESTEROL RATIO.THIS FACTOR VARIES BY MEASURED TRIGLYCERIDE AND NON-HDLCHOLESTEROL CONCENTRATIONS WITH INCREASED CALCULATED LDL SEENIN HIGHER TRIGLYCERIDE OR LOWER NON-HDL SPECIMENS. FOR MOREINFORMATION, SEE CLIENT ANNOUNCEMENT AT [email or web address] RISK RATIO LDL/HDL (test code = 2238) 1.55 RATIO <3.22 COMPREHENSIVE METABOLIC [id number] 06:02:27* Test Item Value Reference Range Interpretation Comme nts GLUCOSE (test code = 2217) 131 MG/DL 70-99 H BUN (test code = 2208) 14 MG/DL 8-23 CREATININE (test code = 2214) 0.68 MG/DL 0.60-1.30 eGFR (2020 CKD-EPI) (test code = 14342) 92 ML/MIN/1.73 >60 CALC BUN/CREAT (test code = 2235) 21 RATIO 6-28 SODIUM (test code = 223) 141 MEQ/L 133-146 POTASSIUM (test code = 2228) 4.9 MEQ/L 3.5-5.4 CHLORIDE (test code = 2215) 102 MEQ/L 95-107 CARBON DIOXIDE (test code = 2206) 26 MEQ/L 19-31 CALCIUM (test code = 2208) 9.7 MG/DL 8.5-10.5 PROTEIN, TOTAL (test code = 222) 7.4 G/DL 6.1-8.3 ALBUMIN (test code = 2201) 4.1 G/DL 3.5-5.2 CALC GLOBULIN (test code = 0) 3.3 G/DL 1.9-3.7 CALC A/G RATIO (test code = 2234) 1.2 RATIO 1.0-2.6 BILIRUBIN, TOTAL (test code = 7) 0.7 MG/DL See_Comment [Automated me ssage] The system which generated this result transmitted reference range: <=1.2. The reference range was not used to interpret this result as normal/abnormal. ALKALINE PHOSPHATASE (test code = 2203) 76 U/L 40-142 AST (test code = 8) 26 U/L 9-40 ALT (test code = 221) 21 U/L 5-40 UNLESS OTHERWISE INDICATED, ALL [facility] [address] [place] [address] DIRECTOR HOME HEALTH: ELIANA PASTOR M.D. CLIA NUMBER [id number] [facility] [place]. [id number] HEMOGLOBIN [id number] 04:46:28* Test Item Value Reference Range Interpretation Comme nts HEMOGLOBIN A1c (test code = 23786) 6.6 % 4.2-5.6 H [employer]ENCH DIABETE S ASSOCIATION GUIDELINES FOR HGB A1C: PREDIABETES/INCREASED RISK . . . . . . . 5.7-6.4% DIAGNOSIS OF DIABETES . . . . . . . . . >=6.5% WITH CONFIRMATION OR APPROPRIATE SYMPTOMS NOTE: ASSAY MAY BE AFFECTED BY HEMOGLOBINOPATHIES (SICKLE CELL ANEMIA, S-C DISEASE, OTHERS) OR ARTIFICIALLY LOWERED BY DECREASED RED CELL SURVIVAL (HEMOLYTIC ANEMIAS, BLOOD LOSS, ETC.). CONSIDER ALTERNATE TESTING OR LABORATORY CONSULTATION. CBC W/AUTO DIFF WITH [id number] 04:14:18* Test Item Value Reference Range Interpretation Comme nts WBC (test code = 1001) 5.0 K/UL 3.5-11.0 RBC (test code = 1002) 4.08 M/UL 3.80-5.40 HEMOGLOBIN (test code = 1003) 13.1 G/DL 11.5-15.5 HEMATOCRIT (test code = 1004) 38.2 % 34.0-45.0 MCV (test code = 1005) 93.6 fL 80.0-99.0 MCH (test code = 1006) 32.1 PG 25.0-33.0 MCHC (test code = 1007) 34.3 G/DL 31.0-36.0 RDW (test code = 1038) 12.7 % 11.5-15.0 NEUTROPHILS (test code = 1008) 53.2 % LYMPHOCYTES (test code = 1010) 34.8 % MONOCYTES (test code = 1011) 10.2 % EOSINOPHILS (test code = 1012) 1.0 % BASOPHILS (test code = 1013) 0.6 % IMMATURE GRANULOCYTES (test code = 1036) 0.2 % NUCLEATED RBCS (test code = 1065) 0.0 /100 WBC'S See_Comment [Automated Agendiaa ge] The system which generated this result transmitted reference range: 0.0. The reference range was not used to interpret this result as normal/abnormal. PLATELET COUNT (test code = 1015) 202 K/UL 130-400 ABSOLUTE NEUTROPHILS (test code = 1066) 2.66 K/UL 1.50-7.50 ABSOLUTE LYMPHOCYTES (test code = 1067) 1.74 K/UL 1.00-4.00 ABSOLUTE MONOCYTES (test code = 1068) 0.51 K/UL 0.20-1.00 ABSOLUTE EOSINOPHILS (test code = 1040) 0.05 K/UL 0.00-0.50 ABSOLUTE BASOPHILS (test code = 1069) 0.03 K/UL 0.00-0.20 ABS IMMATURE GRANULOCYTES (test code = 1020) 0.01 K/UL 0.00-0.10 ABS NUCLEATED RBCS (test code = 66227) 0.00 K/UL 0.00-0.11 SCR MAMM BILATERAL REBECCA CAD [id number] 10:48:17- SCR MAMM BILATERAL REBECCA CAD DIGITALBILATERAL DIGITAL SCREENING MAMMOGRAM 3D/2D WITH CAD: 06/12/2018 CLINICAL: Asymptomatic. Digital breast tomosynthesis was performed in addition to routine CC and MLO views. Current mammographic images were evaluated by either a [employer] M-Vu or a Open Dynamics ImageChecker CAD (computer aided detection system). Comparison is made to exams dated 03/01/2014 mammogram - [facility], 01/11/2016 mammogram, and 03/01/2014 mammogram - [facility]. The tissue of both breasts is heterogeneously dense. This may lower the sensitivity of mammography. There is prominent vascular calcification in both breasts. There also are few benign calcifications in the right breast. No suspicious new mass, new focus of architectural distortion, malignant type clustered calcifications, or lymph node abnormality detected. Breast architecture is stablecompared to prior exams.IMPRESSION: BENIGNThere is no mammographic evidence of malignancy. Resume annual screening mammography in one year. Your patient's mammogram demonstrates that she has dense breast tissue. This can hide abnormalities. In compliance with [place] law ([employer] Law), your patient has been sent a letter which informs her of her breast density and notifies her that, depending on her individual risk factors for the development of breast cancer, she might benefit from additional screening tests such as ultrasound. Dense breast tissue, in and of itself, is a relatively common condi tion. Therefore, this information is not provided to cause undue concern, but rather to raise awareness and to promote discussion regarding the presence of other risk factors, in addition to dense breast tissue.Charanjit Kendall M.D. rb/:06/24/2018 10:48:17 Chiropractic Neurologist: Elyse Shepard MM, [facility] BIRADS 1-2 Normal Mammogram BI-RADS: 2 Benign Notes Date/Time Note Provider Source 2023-07-26 11:05:19 VQQ5aWT96VopPVe5Vhcv 0byrDPg/VYvv7vwD 29nTQnKJrmwCcV7MNzog9NbNtA0L4597-57- 08T11:05:19 Called patient's daughter, no answer. LMOR for daughter to return call to clinic for results and recommendations for the patient. 85302-8Wryxtgfks encounter VnmnMO9402-44-86I53:05:50Telephone encounter NoteTXT1.2.840.673360.1.13.104.2.7.2 .126134|[id number] for patient khxi68760-9SfloMYXQNBFTEJFEkqomssoy C-CDA narrative [id number] Vrana [id number] BQHPPOHNAXPHCHZYTEWVZW1975-80-93T73: 05:501.2.840.368072.1.72.3.15|1.2.84 0.999350.1.13.104.2.7.2.727879_20445 [address] [facility] 2023-07-25 11:36:58 DNheTUoL45eWijcfg/2z EagBmaNf1JkNzdBe lCkKBDOSnVOVKw6xd9X7JTdAJz7a3226-02- 07T11:36:58 Continue the current cardiac medications without any further changes. Recommend follow-up with PCP for better blood sugar control.Labs dated 05/28/2023 reviewed from the cardiac standpoint. A1c mildly elevated 7.1. Recommended goal A1c needs to be less than 6.5. LDL at goal 46, HDL acceptable at 57, triglyceride normal at 60, creatinine stable at 0.5, potassium normal at 4.8, LFTs within normal limits 50438-1Esyfkljnp encounter KgmsWE9784-01-78H45:37:11Telephone encounter NoteTXT1.2.840.594080.1.13.104.2.7.2 .554020|[id number] for patient acfz22097-0OhauPLLFPWAJAPAXgziggcmh C-CDA narrative text[address]Pz[id number] XGAKFHDCEMPUJGUMABUKFU3075-36-64X81: 37:111.2.840.368254.1.72.3.15|1.2.84 0.215328.1.13.104.2.7.2.727879_20435 20142 [facility] 2023-07-25 09:29:46 N+Jq+8gNZvDs9GkTzq59 0/EL/OYwHnl03UxK M+sM0WZ+ixKF2NxGGKYHZTUvunZG0559-68- 07T09:29:46 Received lab results, scanned to [employer] and placed in provider folder for review. KEKE MAO RN 07/25/2023 9:30 AM 42293-7Jmlfbhfzy encounter JnplHR4629-78-99Z31:30:15Telephone encounter NoteTXT1.2.840.953829.1.13.104.2.7.2 .529805|[id number] for patient kkpj86157-1SxxoKPBPGNOLMBKTcuulhxuw C-CDA narrative textUT42 Allen StreetSf[id number] VAIWMWGWWPHUBVIPAYCOIB3358-29-85S29: 30:151.2.840.626429.1.72.3.15|1.2.84 0.249467.1.13.104.2.7.2.727879_20433 22524 [facility] 2023-06-17 12:50:43 ohi+e2DAG6BJMUxvoIM2 1Lxvpg29swuWhDDy Z5k5GUYLImc3WLFP/XkSsrWfr6kU8511-95- 29T12:50:43 Images from the original note were not included.Dr. Wilson went over results with patient during OV will close out this encounterEvgenysaMax forrest MD P Cardiology NurseEcho shows evidence of hypertensive heart disease in terms of mild LVH, mild impaired diastolic dysfunction, mild left atrial enlargement., Mild enlarged ascending aorta.Rest of the echocardiogram within acceptable stable limits.Proceed with Lexiscan NM stress test as discussed during the office visit. Orders placed. 41416-6Lfoncaylf encounter GgjnLY7964-98-39Y54:51:56Telephone encounter NoteTXT1.2.840.283827.1.13.104.2.7.2 .493081|[id number] for patient poma97160-9FtngICCQOHRPMXMQhhjwnmdf C-CDA narrative [id number] VEUIKEZVCRVDVBVLATMMLJ4714-74-45H33: 51:561.2.840.070858.1.72.3.15|1.2.84 0.623819.1.13.104.2.7.2.727879_20105 23843 [facility] 2023-04-09 14:00:00 YlBJdq0dP6WmG7B8JgsO 2qA2VwE6Vftsu9k2 7yzC7Lh7LkWWKzEI4gg76s/PqV530400-16- 21T14:00:00Addended by: MAX WILSON on: 06/14/2023 09:11 AMModules accepted: Orders 41028-6Vhzdwgqh FxevrwqxXP5733-49-50Y43:11:44Addendu DocumentTXT1.2.840.653773.1.13.104.2 .7.2.427544|[id number] for patient uhsz88794-2YifnKXOXWKTRXQJXrirajzzt C-CDA narrative [id number] CYJQVUMJFLPLKMKHOZSWNJ9123-20-42X73: 11:441.2.840.489937.1.72.3.15|1.2.84 0.564240.1.13.104.2.7.2.727879_20087 16985 [facility]"
--- NOTE | 2023-07-27 16:18 | RAD REPORT ---
EXAM DESCRIPTION: RAD - Chest Single View - 07/27/2023 3:58 pm CLINICAL HISTORY: ABDOMINAL DISTENTION COMPARISON: Chest Single View dated 09/06/2016 FINDINGS: Lines: None. Lungs: Question bronchial wall thickening and mild nodularity in the right middle lobe . Pleural: No significant pleural effusions or pneumothorax. Cardiac: The heart size is within normal limits. Mediastinum: Within normal limits. Bones: No acute fractures. Other: None IMPRESSION: Possible right middle lobe airspace disease. This should be visible on the forthcoming C T of the abdomen pelvis.
[2023-07-27 16:19] LABS: Absolute Lymphocytes (CBC) 1.4 K/uL (0.7-4.9); Basophils % 0.4 % (0-1.3); Eosinophils % 0.8 % (0-4.4); Hematocrit 35.3 % (36.0-45.0); Lymphocytes % 28.7 % (15.3-44.8); MCV 91.8 fL (80-100); MPV 9.1 fL (7.6-11.3); Platelets 165 thou/uL (152-406); Protime INR 1.1; RBC Red Blood Cell Count 3.85 M/uL (3.86-4.86)
[2023-07-27 16:35] LABS: Albumin 3.8 g/dL (3.4-5.0); Albumin/Globulin Ratio 1.1 (1.1-1.8); Anion Gap 9.3 mEq/L (5.0-15.0); Bilirubin Direct 0.3 mg/dL (0-0.2); Bilirubin Indirect, Calculated 1.1 mg/dL (0.2-0.8); Bilirubin Total 1.4 mg/dL (0.2-1.0); Globulin 3.5 g/dL (2.3-3.5); Protein, Total 7.3 g/dL (6.4-8.2); Troponin High Sensitivity 9.5 pg/mL (<58.9)
[2023-07-27 16:37] LABS: Magnesium 1.4 mg/dL (1.6-2.4); Potassium 4.3 mEq/L (3.5-5.1)
--- NOTE | 2023-07-27 17:11 | RAD REPORT ---
EXAM DESCRIPTION: US - Abdomen Exam Limited - 07/27/2023 4:59 pm CLINICAL HISTORY: ABD PAIN COMPARISON: No comparisons FINDINGS: The gallbladder demonstrates no gallstones. No pericholecystic fluid or gallbladder wall t hickening. The common bile duct is upper limits of normal measuring 6 mm. The liver demonstrates no findings of intrahepatic biliary dilatation. IMPRESSION: Negative for cholelithiasis or acute cholecystitis. Common bile duct measures 6 millimet ers which is upper limits of normal for age.
--- NOTE | 2023-07-27 17:43 | RAD REPORT ---
EXAM DESCRIPTION: CTAbdomen Pelvis W Contrast - 07/27/2023 5:28 pm CLINICAL HISTORY: ABD PAIN COMPARISON: Abdomen Exam Limited dated 07/27/2023 TECHNIQUE: CT of the abdomen and pelvis was performed. All CT scans are performed using dose optimization technique as appropriate and may include automated exposure control or mA/KV adjustment according to patient size. FINDINGS: Lower chest: Mild circumferential thickened distal esophagus. This could reflect mild esop hagitis. Coronary artery calcifications. Liver: Low-density lesion left hepatic lobe has benign imaging features. Biliary: No biliary ductal dilatation. Stomach: No significant focal abnormality. Duodenum: No significant focal abnormality. Pancreas: No significant abnormality. Spleen: No significant abnormality. Adrenal: No suspicious lesions. Kidney/ureter: Scar right kidney with 2 mm upper pole stone an mild right-sided hydroureteronephrosis . No obstructing stone or mass identified. This could be secondary to a distended bladder and urinary reflux. Retroperitoneum: No retroperitoneal adenopathy. Vascular: No aneurysm. Atherosclerosis. Bowel: Diverticulosis. No evidence of acute diverticulitis.. No appendix identified. No secondary sig ns acute appendicitis. Peritoneum: No ascites or free air. Bladder: Grossly unremarkable. Reproductive: No adnexal masses. Bones: No acute fracture. Other: n/a IMPRESSION: No acute intra-abdominal or pelvic finding. Mild right-sided hydroureteronephrosis witho ut obstructing stone or mass. This could be secondary to vesicoureteral reflux as the bladder is dist ended. Other findings as noted above.
--- NOTE | 2023-07-27 18:06 | ER ---
Nurse's Notes [facility] Name: Jayla Martin Age: 77 yrs Sex: Female : 1945 Arrival Date: 07/27/2023 Time: 15:02 Bed 14 Private MD: Diagnosis: Esophagitis, unspecified;Vomiting;Epigastric abdominal tenderness;Hypomagnesemia;Hydronephrosis with ureteral stricture, not elsewhere classified Presentation: 07/26 15:26 Chief complaint: N/V and diffuse abdominal pain x 1 week, worse today. Coronavirus hb screen: At this time, the client does not indicate any symptoms associated with coronavirus-19. Ebola Screen: No symptoms or risks identified at this time. Initial Sepsis Screen: Does the patient meet any 2 criteria? No. Patient's initial sepsis screen is negative. Does the patient have a suspected source of infection? No. Patient's initial sepsis screen is negative. Risk Assessment: Do you want to hurt yourself or someone else? Patient reports no desire to harm self or others. Onset of symptoms was July 20, 2023. 15:26 Method Of Arrival: Ambulatory hb 15:26 Acuity: LIZETH 3 hb Triage Assessment: 15:27 General: Appears in no apparent distress. Behavior is calm, cooperative. Pain: Pain hb currently is 5 out of 10 on a pain scale. Neuro: Level of Consciousness is awake, alert, obeys commands, Oriented to person, place, time, situation. Cardiovascular: Patient's skin is warm and dry. Respiratory: Respiratory effort is even, unlabored, Respiratory pattern is regular, symmetrical. GI: Reports lower abdominal pain, upper abdominal pain, nausea, vomiting. Historical: - Allergies: 15: No Known Allergies; hb - Home Meds: 15:27 amlodipine 5 mg tab 1 tab once daily [Active]; metformin 1 Oral tab 1 tab 2 times per hb day [Active]; losartan oral 15 mg daily [Active]; atorvastatin 10 mg oral tablet daily [Active]; Plaquenil 125 mg Oral tablet daily [Active]; famotidine 40 mg Oral tablet daily [Active]; - PMHx: 15:27 Diabetes - NIDDM; Hypertension; Rheumatoid arthritis; hb - PSHx: 15:27 Hernia Repair; section; hb - Immunization history:: Adult Immunizations up to date. - Social history:: Smoking status: Patient denies any tobacco usage or history of. Screenin:23 [facility] ED Fall Risk Assessment (Adult) History of falling in the last 3 months, db including since admission No falls in past 3 months (0 pts) Confusion or Disorientation No (0 pts) Intoxicated or Sedated No (0 pts) Impaired Gait No (0 pts) Mobility Assist Device Used No (0 pt) Altered Elimination No (0 pt) Score/Fall Risk Level 0 - 2 = Low Risk Oriented to surroundings, Maintained a safe environment. Abuse screen: Denies threats or abuse. Denies injuries from another. Nutritional screening: No deficits noted. Tuberculosis screening: No symptoms or risk factors identified. Assessment: 16:05 Reassessment: Patient appears in no apparent distress at this time. Patient and/or db family updated on plan of care and expected duration. Pain level reassessed. Patient is alert, oriented x 3, equal unlabored respirations, skin warm/dry/pink. General: Appears in no apparent distress. comfortable, Behavior is calm, cooperative. Neuro: Level of Consciousness is awake, alert, obeys commands, Oriented to person, place, time, situation. GI: Reports nausea, vomiting. 17:19 Reassessment: PATIENT IN CT. db 17:45 Reassessment: PATIENT RETURNED FROM CT. IV INFILTRATED IN CT. ICE APPLIED. PT db AMBULATORY TO RESTROOM. HIGHWAY TRAFFIC CONTROL TECHNICIAN EXPLAINED TO PATIENT WITH SUEDE CLEANER CARE FOR ARM AFTER IV CONTRAST INFILTRATION. 18:00 Reassessment: Patient appears in no apparent distress at this time. Patient and/or db family updated on plan of care and expected duration. Pain level reassessed. Patient is alert, oriented x 3, equal unlabored respirations, skin warm/dry/pink. 18:05 Reassessment: DELAY IN CONTINUING MEDICATION DUE TO DIFFICULTY OBTAINING SECONDARY IV db ACCESS. 18:31 Reassessment: DC PENDING MEDICATION ADMINISTRATION TO FINISH. db 19:00 General: Appears in no apparent distress. comfortable, Behavior is calm, cooperative. jw7 Pain: Denies pain. Neuro: Level of Consciousness is awake, alert, obeys commands, Oriented to person, place, time, situation. 19:00 Cardiovascular: Heart tones S1 S2 present Capillary refill < 3 seconds Patient's skin jw7 is warm and dry. Respiratory: Airway is patent Trachea midline Respiratory effort is even, unlabored, Respiratory pattern is regular, symmetrical. GI: Abdomen is flat, non-distended, Bowel sounds present X 4 quads. Abd is soft and non tender X 4 quads. : No deficits noted. No signs and/or symptoms were reported regarding the genitourinary system. EENT: No deficits noted. No signs and/or symptoms were reported regarding the EENT system. Derm: Skin is intact, is healthy with good turgor, Skin is dry, Skin is normal, Skin temperature is warm. Musculoskeletal: Circulation, motion, and sensation intact. Range of motion: intact in all extremities. Vital Signs: 15:26 BP 151 / 84; Pulse 72; Resp 16; Temp 98.4(O); Pulse Ox 100% on R/A; Weight 66.22 kg; hb Height 5 ft. 3 in. ; Pain 5/10; 16:00 BP 137 / 72; Pulse 62; Resp 16; Pulse Ox 98% on R/A; db 16:45 BP 158 / 79; Pulse 61; Resp 18; Pulse Ox 100% on R/A; db 17:45 BP 171 / 82; Pulse 61; Resp 18; Pulse Ox 100% on R/A; db 18:00 BP 151 / 77; Pulse 60; Resp 16; Pulse Ox 100% on R/A; db 19:00 BP 137 / 88; Pulse 58; Resp 15 S; Pulse Ox 97% on R/A; jw7 15:26 Body Mass Index 25.86 (66.22 kg, 160.02 cm) hb 15:26 Pain Scale: Adult hb ED Course: 15:04 Patient arrived in ED. ra3 15:27 Triage completed. hb 15:27 Arm band placed on. hb 15:31 Marshall Akhtar MD is Attending Physician. cam 15:39 Katharina Soriano, RN is Primary Nurse. db 16:00 XRAY Chest (1 view) In Process Unspecified. EDMS 16:08 Initial lab(s) drawn, by me, sent to lab. Inserted saline lock: 22 gauge in right db antecubital area, using aseptic technique. Blood collected. 16:42 EKG done, by ED staff, reviewed by Marshall Akhtar MD. hb 17:01 US Abdomen Limited In Process Unspecified. EDMS 17:21 Patient has correct armband on for positive identification. Bed in low position. Call db light in reach. Side rails up X 1. Pulse ox on. NIBP on. 17:30 CT Abd/Pelvis - PO and IV Contrast In Process Unspecified. EDMS 17:45 IV is reddened, is swollen, RIGHT AC IV REMOVED. INFILTRATED FROM CT IV CONTRAST. db 18:05 Manny Ulloa DO is Referral Physician. cam 18:05 Jason Quarles MD is Referral Physician. cam 18:06 Inserted saline lock: 22 gauge in right forearm, using aseptic technique. as6 18:08 Hiram Dotson MD is Referral Physician. cam 19:00 Report received from ABDI Posadas. 7 19:00 Provided Education on: use of call light. jw7 19:25 No provider procedures requiring assistance completed. IV discontinued, intact, jw7 bleeding controlled, No redness/swelling at site. Pressure dressing applied. Administered Medications: 15:52 Drug: Famotidine IVP 20 mg IVP once; dilute with 10 mL 0.9% NaCl; give over 2 minutes db Route: IVP; Site: right antecubital; 18:31 Follow up: Response: No adverse reaction db 15:52 Drug: Ondansetron IVP 4 mg IVP once; over 2 minutes Route: IVP; Site: right antecubital;db 18:31 Follow up: Response: No adverse reaction db 15:58 Drug: NS 0.9% IV 1000 ml IV at 1 bolus Per protocol; 1000 mL bolus Route: IV; Rate: 1 db bolus; Site: right antecubital; 19:05 Follow up: Response: No adverse reaction; IV Status: Completed infusion; IV Intake: db 1000ml 17:05 Drug: Magnesium Sulfate IVPB 1 grams IVPB once over 1 hrs Route: IVPB; Infused Over: 1 db hrs; Site: right antecubital; 19:05 Follow up: Response: No adverse reaction; IV Status: Completed infusion; IV Intake: db 100ml Medication: 19:25 VIS not applicable for this client. jw7 Intake: 19:05 IV: 100ml; Total: 100ml. db 19:05 IV: 1000ml; Total: 1100ml. db Outcome: 18:06 Discharge ordered by . cam 19:25 Discharged to home ambulatory, with family, [place] 19:25 Condition: stable 19:25 Discharge instructions given to patient, family, Instructed on discharge instructions, follow up and referral plans. medication usage, Demonstrated understanding of instructions, follow-up care, medications, Prescriptions given X 3, 19:26 Patient left the ED. jw7 Signatures: Dispatcher [employer] EDMarshall Knowles MD MD cha Baxter, Heather, RN RN hb Yonathan Schmitt, RN RN as6 Sheri Mendez RN RN jw7 Katharina Soriano RN Constanza Boudreaux ra3 Corrections: (The following items were deleted from the chart) 15:55 15:30 Client placed on continuous cardiac and pulse oximetry monitoring. NIBP hb monitoring applied. Pulse ox on. NIBP on. hb
--- NOTE | 2023-07-27 18:06 | EDPHYS ---
Physician Documentation [facility] Name: Jayla Martin Age: 77 yrs Sex: Female : 1945 Arrival Date: 07/27/2023 Time: 15:02 Bed 14 Private MD: DESMOND Physician Marshall Akhtar HPI: 07/26 16:23 This 77 yrs old Female presents to ER via Ambulatory with complaints of cam Vomiting, Nausea. 16:23 The patient presents to the emergency department with nausea, vomiting, abdominal pain, cam of the epigastric area, right upper quadrant and left upper quadrant. Onset: The symptoms/episode began/occurred 4 week(s) ago. Possible causes: unknown, flare up of bowel problem. The symptoms are aggravated by food , The symptoms are alleviated by nothing. Associated signs and symptoms: Pertinent positives: abdominal pain, nausea, vomiting. Severity of symptoms: At their worst the symptoms were mild moderate in the emergency department the symptoms are unchanged. The patient has experienced similar episodes in the past, several times. Historical: - Allergies: 15:27 No Known Allergies; hb - Home Meds: 15:27 amlodipine 5 mg tab 1 tab once daily [Active]; metformin 1 Oral tab 1 tab 2 times per hb day [Active]; losartan oral 15 mg daily [Active]; atorvastatin 10 mg oral tablet daily [Active]; Plaquenil 125 mg Oral tablet daily [Active]; famotidine 40 mg Oral tablet daily [Active]; - PMHx: 15:27 Diabetes - NIDDM; Hypertension; Rheumatoid arthritis; hb - PSHx: 15:27 Hernia Repair; section; hb - Immunization history:: Adult Immunizations up to date. - Social history:: Smoking status: Patient denies any tobacco usage or history of. ROS: 16:26 Constitutional: Negative for fever, chills, and weight loss, Eyes: Negative for injury, cam pain, redness, and discharge, ENT: Negative for injury, pain, and discharge, Neck: Negative for injury, pain, and swelling, Cardiovascular: Negative for chest pain, palpitations, and edema, Respiratory: Negative for shortness of breath, cough, wheezing, and pleuritic chest pain, Back: Negative for injury and pain, : Negative for injury, bleeding, discharge, and swelling, MS/Extremity: Negative for injury and deformity, Skin: Negative for injury, rash, and discoloration, Neuro: Negative for headache, weakness, numbness, tingling, and seizure, Psych: Negative for depression, anxiety, suicide ideation, homicidal ideation, and hallucinations, Allergy/Immunology: Negative for hives, rash, and allergies, Endocrine: Negative for neck swelling, polydipsia, polyuria, polyphagia, and marked weight changes, 16:26 Abdomen/GI: Positive for abdominal pain, nausea and vomiting, Exam: 16:26 Constitutional: This is a well developed, well nourished patient who is awake, alert, cam and in no acute distress. Head/Face: Normocephalic, atraumatic. Eyes: Pupils equal round and reactive to light, extra-ocular motions intact. Lids and lashes normal. Conjunctiva and sclera are non-icteric and not injected. Cornea within normal limits. Periorbital areas with no swelling, redness, or edema. ENT: Nares patent. No nasal discharge, no septal abnormalities noted. Tympanic membranes are normal and external auditory canals are clear. Oropharynx with no redness, swelling, or masses, exudates, or evidence of obstruction, uvula midline. Mucous membranes moist. Neck: Trachea midline, no thyromegaly or masses palpated, and no cervical lymphadenopathy. Supple, full range of motion without nuchal rigidity, or vertebral point tenderness. No Meningismus. Chest/axilla: Normal chest wall appearance and motion. Nontender with no deformity. No lesions are appreciated. Cardiovascular: Regular rate and rhythm with a normal S1 and S2. No gallops, murmurs, or rubs. Normal PMI, no JVD. No pulse deficits. Respiratory: Lungs have equal breath sounds bilaterally, clear to auscultation and percussion. No rales, rhonchi or wheezes noted. No increased work of breathing, no retractions or nasal flaring. Back: No spinal tenderness. No costovertebral tenderness. Full range of motion. Female : Normal external genitalia. Skin: Warm, dry with normal turgor. Normal color with no rashes, no lesions, and no evidence of cellulitis. MS/ Extremity: Pulses equal, no cyanosis. Neurovascular intact. Full, normal range of motion. Neuro: Awake and alert, GCS 15, oriented to person, place, time, and situation. Cranial nerves II-XII grossly intact. Motor strength 5/5 in all extremities. Sensory grossly intact. Cerebellar exam normal. Normal gait. Psych: Awake, alert, with orientation to person, place and time. Behavior, mood, and affect are within normal limits. 16:26 Abdomen/GI: Inspection: abdomen appears normal, Bowel sounds: normal, Palpation: mild abdominal tenderness, in the epigastric area, right upper quadrant and left upper quadrant, Liver: no appreciated palpable abnormalities, Hernia: not appreciated, 16:45 ECG was reviewed by the Attending Physician. [facility] Vital Signs: 15:26 BP 151 / 84; Pulse 72; Resp 16; Temp 98.4(O); Pulse Ox 100% on R/A; Weight 66.22 kg; hb Height 5 ft. 3 in. ; Pain 5/10; 16:00 BP 137 / 72; Pulse 62; Resp 16; Pulse Ox 98% on R/A; db 16:45 BP 158 / 79; Pulse 61; Resp 18; Pulse Ox 100% on R/A; db 17:45 BP 171 / 82; Pulse 61; Resp 18; Pulse Ox 100% on R/A; db 18:00 BP 151 / 77; Pulse 60; Resp 16; Pulse Ox 100% on R/A; db 19:00 BP 137 / 88; Pulse 58; Resp 15 S; Pulse Ox 97% on R/A; jw7 15:26 Body Mass Index 25.86 (66.22 kg, 160.02 cm) hb 15:26 Pain Scale: Adult hb MDM: 15:31 Patient medically screened. cam 16:27 Differential diagnosis: Nonspecific abd pain, gastritis, cholecystitis, pancreatitis, cam appendicitis, viral gastroenteritis, gastroenteritis. Data reviewed: vital signs, nurses notes, lab test result(s), EKG, radiologic studies, CT scan, plain films. Consideration of Admission/Observation Patient was admitted/placed on observation. Escalation of care including admission/observation considered. I considered the following discharge prescriptions or medication management in the emergency department Medications were administered in the Emergency Department. See MAR. Independent interpretation of the following test(s) in the Emergency Department EKG: See my EKG interpretation above. Test considered but Not performed: MRI: no mrcp. Historians other than the Patient: Daughter/Son: DAUGHTER WELL INFORMED. Care significantly affected by the following chronic conditions: Diabetes, Hypertension, RA. Counseling: I had a detailed discussion with the patient and/or guardian regarding the historical points, exam findings, and any diagnostic results supporting the discharge/admit diagnosis, lab results, radiology results. 07/26 15:34 Order name: Basic Metabolic Panel; Complete Time: 16:53 [facility] 07/26 15:34 Order name: CBC with Diff; Complete Time: 16:33 [facility] 07/26 15:34 Order name: LFT's; Complete Time: 16:53 07/26 15:34 Order name: Magnesium; Complete Time: 16:53 [facility] 07/26 15:34 Order name: NT PRO-BNP; Complete Time: 16:53 cam 07/26 15:34 Order name: PT-INR; Complete Time: 16:33 07/26 15:34 Order name: Troponin HS; Complete Time: 16:53 [facility] 07/26 15:34 Order name: Lipase; Complete Time: 16:53 [facility] 07/26 15:34 Order name: Urinalysis w/ reflexes; Complete Time: 18:19 07/26 15:34 Order name: Lactate w/ 2H reflex if indic.; Complete Time: 16:53 [facility] 07/26 15:34 Order name: XRAY Chest (1 view); Complete Time: 16:33 07/26 16:19 Order name: US Abdomen Limited; Complete Time: 18:01 cam 07/26 16:25 Order name: CT Abd/Pelvis - PO and IV Contrast; Complete Time: 18:01 [facility] 07/26 15:34 Order name: EKG; Complete Time: 15:34 [facility] 07/26 15:34 Order name: Cardiac monitoring; Complete Time: 16:11 [facility] 07/26 15:34 Order name: EKG - Nurse/Tech; Complete Time: 16:11 cam 07/26 15:34 Order name: IV Saline Lock; Complete Time: 16:11 cam 07/26 15:34 Order name: Labs collected and sent; Complete Time: 16:11 07/26 15:34 Order name: O2 Per Protocol; Complete Time: 16:11 [facility] 07/26 15:34 Order name: O2 Sat Monitoring; Complete Time: 16:11 [facility] EC:45 Rate is 61 beats/min. Rhythm is regular. QRS [place] is Normal. RI interval is normal. QRS cam interval is normal. QT interval is normal. No Q waves. T waves are Normal. No ST changes noted. Clinical impression: NSR w/ Non-specific ST/T Changes and No evidence of ischemia. Interpreted by me. Reviewed by me. Administered Medications: 15:52 Drug: Famotidine IVP 20 mg IVP once; dilute with 10 mL 0.9% NaCl; give over 2 minutes db Route: IVP; Site: right antecubital; 18:31 Follow up: Response: No adverse reaction db 15:52 Drug: Ondansetron IVP 4 mg IVP once; over 2 minutes Route: IVP; Site: right antecubital;db 18:31 Follow up: Response: No adverse reaction db 15:58 Drug: NS 0.9% IV 1000 ml IV at 1 bolus Per protocol; 1000 mL bolus Route: IV; Rate: 1 db bolus; Site: right antecubital; 19:05 Follow up: Response: No adverse reaction; IV Status: Completed infusion; IV Intake: db 1000ml 17:05 Drug: Magnesium Sulfate IVPB 1 grams IVPB once over 1 hrs Route: IVPB; Infused Over: 1 db hrs; Site: right antecubital; 19:05 Follow up: Response: No adverse reaction; IV Status: Completed infusion; IV Intake: db 100ml Disposition Summary: 07/27/23 18:06 Discharge Ordered Notes: Location: Home cam Problem: new cam Symptoms: have improved cam Condition: Stable cam Diagnosis - Esophagitis, unspecified cam - Vomiting cam - Epigastric abdominal tenderness cam - Hypomagnesemia cam - Hydronephrosis with ureteral stricture, not elsewhere classified cam Followup: cam - With: Manny Ulloa DO - When: - Reason: Recheck today's complaints, Re-evaluation by your physician Followup: cam - With: Jason Quarles MD - When: 2 - 3 days - Reason: Recheck today's complaints, Re-evaluation by your physician Followup: cam - With: Hiram Dotson MD - When: 5 - 6 days - Reason: Recheck today's complaints, Re-evaluation by your physician Discharge Instructions: - Discharge Summary Sheet cam - Abdominal Pain, Adult cam - Esophagitis cam - Hypomagnesemia cam - Hydronephrosis cam - Vomiting, Adult cam Forms: - Medication Reconciliation Form cam - Thank You Letter cam - Antibiotic Education cam - Prescription Opioid Use cam - Patient Portal Instructions cam - Leadership Thank You Letter cam Prescriptions: - ondansetron 4 mg Oral Tablet,disintegrating - take 1 tablet ORAL route every 6 hours for 5 days; 20 tablet; Refills: 0, [facility] Product Selection Permitted - Carafate 100 mg/mL Oral suspension - take 10 milliliter ORAL route before meals for 7 days; 280 milliliter; Refills: cam 0, Product Selection Permitted - Protonix 40 mg Oral Tablet - take 1 tablet ORAL route once daily; 30 tablet; Refills: 0, Product Selection cam Permitted Signatures: Dispatcher [employer] EDMarshall Knowles MD MD cha Baxter, Heather, ABDI RN Katharina Simon RN RN db Corrections: (The following items were deleted from the chart) 16:31 15:34 Abdomen Pelvis W Con+CT.RAD.BRZ ordered. DESMONDPR DESMONDPR
[2023-07-27 18:15] LABS: Urine Bilirubin NEGATIVE (Negative); Urine Blood Negative (Negative); Urine Clarity Clear (Clear); Urine Color Colorless (Yellow); Urine Glucose NEGATIVE (Negative); Urine Protein NEGATIVE (Negative); Urine Urobilinogen Normal (Normal); Urine pH 7.5 (5.0-7.0)
[2023-07-27 20:05] VITALS: BP 137/88; TEMP 98.4; O2SAT 97
== END ==
LOC: ER 15:02
DX: K20.90 Esophagitis, unspecified without bleeding (principal); N13.1 Hydronephrosis with ureteral stricture, not elsewhere classified; E83.42 Hypomagnesemia; R10.811 Right upper quadrant abdominal tenderness; E11.9 Type 2 diabetes mellitus without complications; I10 Essential (primary) hypertension
CPT/HCPCS: 96365; 96361; 85025; 80048; 36415; 83735; 85610; 80076; 83605; 81003; 84484; 83690; 83880; 74177; 71045; 76705; 96375; 99284; 96366; Q9967; J3475; J2405; J7030

== ENCOUNTER 2024-04-27 08:13 | Emergency (ER) | payer OTHER ==
--- OUTSIDE RECORDS SUMMARY | 2024-04-27 08:32 | XMS REPORT | Continuity of Care Document ---
Author Name Unknown Address [address] [facility] [address] [place] [address] [facility] thconnect Address [address] [facility] [address] [place] [address] Care Team Providers Care Dressage Judge Name Role Phone LudwinHéctor saavedrajsoseline Linton Primary Care Physician [phone] Cristy Noble Attending Clinician MAX Silva K.HJuan Jose Attending Clinician Valentín Wilson MD, Sendil K.H. Attending Clinician + [phone] NICOLETTE FRITZ Attending Clinician Susan Fischer MD, Sendrohit K.H. Attending Clinician + [phone] Doctor Unassigned, Brimson Attending Clinician JC Anthony Attending Clinician Jc Serna Attending Clinician [phone] Unknown, Attending Attending Clinician MAX LeavittHJuan Jose Admitting Clinician Valentín yao Payers Payer Name Policy Type Policy Number Effective Date Expirati on Date Source [employer]-DUAL COMPLETE 1 [id number] 2023 00:00:00 MEDICAID-NHIC 6 [id number] 2023 00:00:00 Problems Condition Name Condition Details Condition Category Status Onset Date Resolution Date Last Treatment Date Treating Clinician Comments Source No known active problems No known active problems Disease [facility] [id number] Right renal atrophy Problem [facility] [id number] History of nephrolith iasis Problem [facility] [id number] Kidney stone Problem [facility] [id number] Hydronephr osis, right Problem [facility] Allergies, Adverse Reactions, Alerts Allergy Name Allergy Type Status Severity Reaction(s) Onset Date Inactive Date Treating Clinician Comments Source NO KNOWN ALLERGIE S Drug Class Active [facility] Social History Social Habit Start Date Stop Date Quantity Comments Source [facility] of Tobacco Use [facility] Sex Assigned At [facility] Tobacco use and exposure 2023-12-30 00:00:00 2023-12-30 00:00:00 Smokeless tobacco non-user [facility] Alcoholic beverage intake 2023-12-30 00:00:00 2023-12-30 00:00:00 Lifetime non-drinker (finding) [facility] History of Social function 2023-12-30 00:00:00 2023-12-30 00:00:00 [facility] Exposure to SARS-CoV-2 (event) 2021-09-18 00:00:00 2021-09-28 12:54:00 Not sure [facility] Smoking Status Start Date Stop Date Source Tobacco smoking consumption unknown [facility] Never smoked tobacco [facility] Medications Ordered Medication Name Filled Medication Name Start Date Stop Date Current Medication? Ordering Clinician Indication Dosage Frequency Signature (SIG) Comments Components Source regadenoson (LEXISCAN) injection 0.4 mg 01-06 15:45: 00 01-06 15:40 :00 No [id number] .4mg 0.4 mg, IV Push, ONCE, 1 dose, On Sat01/07/24 at 1045, Routine, pricing/signage team member approving Restricted medication : ARELY FLOWERS [facility] tc 99m-tetrofo smin (MYOVIEW) injection 43.2 millicurie 01-06 15:45: 00 01-06 15:40 :00 No [id number] 43.2mCi 43.2 millicurie , Intravenou s, ONCE, 1 dose, On Sat01/07/24 at 1045, Routine [facility] tc 99m-tetrofo smin (MYOVIEW) injection 16.3 millicurie 01-06 14:00: 00 01-06 13:49 :00 No [id number] 16.3mCi 16.3 millicurie , Intravenou s, ONCE, 1 dose, On Sat01/07/24 at 0900, Routine [facility] amLODIPine 5 mg tablet 12-29 14:58: 25 Yes 5mg Take 1 tablet by mouth daily. [facility] glipiZIDE 5 mg tablet 12-29 14:26: 31 12-29 00:00 :00 No 5mg Take 1 tablet by mouth 2 (two) times daily. [facility] pravastatin 10 mg tablet 12-29 14:26: 25 12-29 00:00 :00 No 10mg Take 1 tablet by mouth every evening. [facility] losartan 50 mg tablet 12-29 14:26: 22 Yes 50mg Take 1 tablet by mouth daily. [facility] atorvastati n 20 mg tablet 12-29 14:26: 22 Yes 20mg Take 1 tablet by mouth at bedtime. [facility] pravastatin 10 mg tablet 07-10 15:48: 36 Yes 10mg Take 1 tablet by mouth every evening. [facility] losartan 50 mg tablet 07-10 15:47: 41 Yes 50mg Take 1 tablet by mouth daily. [facility] atorvastati n 20 mg tablet 07-10 15:47: 38 Yes 20mg Take 1 tablet by mouth at bedtime. [facility] amLODIPine 5 mg tablet 07-10 15:47: 36 Yes 5mg Take 1 tablet by mouth daily. [facility] ondansetron (ZOFRAN (PF)) injection 4 mg 07-09 01:12: 00 07-09 01:35 :00 No [id number] 4mg [facility] hydroxychlo roquine (PLAQUENIL) 25 mg/mL oral suspension 07-08 19:02: 00 Yes Take by mouth. [facility] Omeprazole 20 mg tablet 07-08 19:02: 00 Yes Take by mouth. [facility] metFORMIN 850 mg tablet 07-08 18:55: 04 Yes 850mg Take 1 tablet by mouth 2 (two) times daily with meals. [facility] losartan 50 mg tablet 07-08 18:55: 04 Yes 50mg Take 1 tablet by mouth daily. [facility] glipiZIDE 5 mg tablet 07-08 18:55: 04 Yes 5mg Take 1 tablet by mouth 2 (two) times daily. [facility] amLODIPine 5 mg tablet 07-08 18:55: 04 Yes 5mg Take 1 tablet by mouth daily. [facility] pravastatin 10 mg tablet 07-08 18:55: 04 Yes 10mg Take 1 tablet by mouth every evening. [facility] atorvastati n 20 mg tablet 07-08 18:55: 04 Yes 20mg Take 1 tablet by mouth at bedtime. [facility] famotidine 40 mg tablet 07-08 00:00: 00 08-07 04:59 :00 No [id number] 40mg Take 1 tablet by mouth daily for 30 days. [facility] cefdinir 300 mg capsule 07-08 00:00: 00 07-16 05:59 :00 No [id number] 300mg Take 1 capsule by mouth every 12 (twelve) hours for 7 days. [facility] ondansetron 8 mg tablet 07-08 00:00: 00 07-14 05:59 :00 No [id number] 8mg Take 1 tablet by mouth every 8 (eight) hours as needed for Nausea and Vomiting (N/V) for up to 5 days. [facility] glipiZIDE 5 mg tablet 2022-05 15:08: 50 Yes 5mg Take 5 mg by mouth 2 (two) times daily. [facility] amLODIPine 5 mg tablet 2022-05 14:57: 42 Yes 5mg Take 5 mg by mouth daily. [facility] metFORMIN 850 mg tablet 2022-05 14:57: 41 Yes 850mg Take 850 mg by mouth 2 (two) times daily with meals. [facility] pravastatin 10 mg tablet 2022-05 14:57: 40 Yes 10mg Take 10 mg by mouth every evening. [facility] losartan 50 mg tablet 2022-05 14:57: 38 Yes 50mg Take 50 mg by mouth daily. [facility] metFORMIN 850 mg tablet 09-28 13:17: 56 Yes 850mg Take 850 mg by mouth 2 (two) times daily with meals. [facility] losartan 50 mg tablet 09-28 13:17: 56 Yes 50mg Take 50 mg by mouth daily. [facility] glipiZIDE 5 mg tablet 09-28 13:17: 56 Yes 5mg Take 5 mg by mouth 2 (two) times daily. [facility] amLODIPine 5 mg tablet 09-28 13:17: 56 Yes 5mg Take 5 mg by mouth daily. [facility] pravastatin 10 mg tablet 09-28 13:17: 56 Yes 10mg Take 10 mg by mouth every evening. [facility] Aspirin 81 81 MG Aspirin 81 81 MG No 1{table t} QD Aspirin 81 81 MG amLODIPine Besylate 5 MG amLODIPine Besylate 5 MG No 1{table t} QD amLODIPine Besylate 5 MG Sucralfate 1 GM Sucralfate 1 GM No 1{table t_on_an _empty_ stomach } BID Sucralfate 1 GM Atorvastati n Calcium 20 MG Atorvastati n Calcium 20 MG No 1{table t} QD Atorvastat in Calcium 20 MG Pantoprazol e Sodium 40 MG Pantoprazol e Sodium 40 MG No 1{table t} QD Pantoprazo le Sodium 40 MG Losartan Potassium 50 MG Losartan Potassium 50 MG No 1{table t} QD Losartan Potassium 50 MG metFORMIN HCl 850 MG metFORMIN HCl 850 MG No 1{table t_with_ a_meal} QD metFORMIN HCl 850 MG Immunizations Ordered Immunization Name Filled Immunization Name Date Status Comments Source Influenza Virus Vaccine,quad Im,preserve Free 65+ (FLUAD) Unknown Completed [facility] Influenza Virus Vaccine,quad Im,preserve Free 65+ (FLUAD) Unknown Completed [facility] Influenza Virus Vaccine,quad Im,preserve Free 65+ (FLUAD) Unknown Completed [facility] Influenza Virus Vaccine,quad Im,preserve Free 65+ (FLUAD) Unknown Completed [facility] Influenza Virus Vaccine,quad Im,preserve Free 65+ (FLUAD) Unknown Completed [facility] Influenza Virus Vaccine,quad Im,preserve Free 65+ (FLUAD) Unknown Completed [facility] Influenza Virus Vaccine,quad Im,preserve Free 65+ (FLUAD) Unknown Completed [facility] Influenza Virus Vaccine,quad Im,preserve Free 65+ (FLUAD) Unknown Completed [facility] Influenza Virus Vaccine,quad Im,preserve Free 65+ (FLUAD) Unknown Completed [facility] Influenza Virus Vaccine,quad Im,preserve Free 65+ (FLUAD) Unknown Completed [facility] Influenza Virus Vaccine,quad Im,preserve Free 65+ (FLUAD) Unknown Completed [facility] Influenza Virus Vaccine,quad Im,preserve Free 65+ (FLUAD) Unknown Completed [facility] Influenza Virus Vaccine,quad Im,preserve Free 65+ (FLUAD) Unknown Completed [facility] Influenza Virus Vaccine,quad Im,preserve Free 65+ (FLUAD) Unknown Completed [facility] Influenza Virus Vaccine,quad Im,preserve Free 65+ (FLUAD) Unknown Completed [facility] Influenza Virus Vaccine,quad Im,preserve Free 65+ (FLUAD) Unknown Completed [facility] Vital Signs Vital Name Observation Time Observation Value Comments S ted Systolic blood pressure 2023-12-30 19:27:00 128 mm[Hg] [facility] Diastolic blood pressure 2023-12-30 19:27:00 71 mm[Hg] [facility] Heart rate 2023-12-30 19:27:00 65 /min [facility] Respiratory rate 2023-12-30 19:27:00 20 /min [facility] Body weight 2023-12-30 19:27:00 63.504 kg [facility] Oxygen saturation in Arterial blood by Pulse oximetry 2023-12-30 19:27:00 96 /min [facility] height 2023-10-16 14:15:00 65 [in_i] Commo n [facility] weight 2023-10-16 14:15:00 135.2 [lb_av] Co mmon [facility] temperature 2023-10-16 14:15:00 97.5 [degF] Com mon [facility] bmi 2023-10-16 14:15:00 22.5 kg/m2 Commo n [facility] oximetry 2023-10-16 14:15:00 98 % Commo n [facility] respiratory rate 2023-10-16 14:15:00 18 /min [facility] blood pressure systolic 2023-10-16 14:15:00 132 mm[Hg] [facility] blood pressure diastolic 2023-10-16 14:15:00 69 mm[Hg] [facility] height 2023-10-02 13:45:00 65 [in_i] Commo n [facility] weight 2023-10-02 13:45:00 134.2 [lb_av] Co mmon [facility] temperature 2023-10-02 13:45:00 97 [degF] Comm on [facility] bmi 2023-10-02 13:45:00 22.33 kg/m2 Comm on [facility] oximetry 2023-10-02 13:45:00 99 % Commo n [facility] respiratory rate 2023-10-02 13:45:00 18 /min [facility] blood pressure systolic 2023-10-02 13:45:00 135 mm[Hg] [facility] blood pressure diastolic 2023-10-02 13:45:00 66 mm[Hg] [facility] Systolic blood pressure 2023-07-10 21:30:00 117 mm[Hg] [facility] Diastolic blood pressure 2023-07-10 21:30:00 67 mm[Hg] [facility] Heart rate 2023-07-10 21:30:00 65 /min Unive [facility] Body temperature 2023-07-10 21:30:00 36.33 Rachael [facility] Respiratory rate 2023-07-10 21:30:00 17 /min [facility] Body weight 2023-07-10 21:30:00 64.411 kg [facility] Oxygen saturation in Arterial blood by Pulse oximetry 2023-07-10 21:30:00 95 /min [facility] Systolic blood pressure 2023-07-09 00:57:00 152 mm[Hg] [facility] Diastolic blood pressure 2023-07-09 00:57:00 83 mm[Hg] [facility] Heart rate 2023-07-09 00:54:00 65 /min Unive [facility] Body temperature 2023-07-09 00:54:00 37.06 Rachael [facility] Body weight 2023-07-09 00:54:00 63.685 kg [facility] Oxygen saturation in Arterial blood by Pulse oximetry 2023-07-09 00:54:00 99 /min [facility] Systolic blood pressure 2023-04-09 20:52:00 119 mm[Hg] [facility] Diastolic blood pressure 2023-04-09 20:52:00 66 mm[Hg] [facility] Heart rate 2023-04-09 20:52:00 69 /min Unive [facility] Body temperature 2023-04-09 20:52:00 36 Rachael [facility] Respiratory rate 2023-04-09 20:52:00 17 /min [facility] Body weight 2023-04-09 20:52:00 66.951 kg [facility] Oxygen saturation in Arterial blood by Pulse oximetry 2023-04-09 20:52:00 96 /min [facility] Systolic blood pressure 2021-09-28 18:05:00 115 mm[Hg] [facility] Diastolic blood pressure 2021-09-28 18:05:00 70 mm[Hg] [facility] Heart rate 2021-09-28 18:05:00 72 /min [facility] Respiratory rate 2021-09-28 18:05:00 15 /min [facility] Body weight 2021-09-28 18:05:00 67.586 kg [facility] Oxygen saturation in Arterial blood by Pulse oximetry 2021-09-28 18:05:00 95 /min [facility] Procedures Procedure Date / Time Performed Performing Clinician Source [facility] MYOCARDIUM PERFUSION STRESS AND REST 2024-01-07 17:13:00 [facility] MYOCARDIUM PERFUSION STRESS AND REST 2024-01-07 17:13:00 Max [facility] MYOCARDIUM PERFUSION STRESS AND REST 2024-01-07 17:13:00 Max [facility] MYOCARDIUM PERFUSION STRESS AND REST 2024-01-07 17:13:00 Max Wilson [facility] PVR 2023-10-02 00:00:00 [facility] EXTERNAL PROVIDER - ADC CARDIOLOGY 2023-07-17 06:01:00 Doctor Unassigned, Brimson [facility] POCT URINALYSIS 2023-07-09 01:57:00 [facility] (TTE) COMPLETE 2023-06-11 19:36:28 Max Wilson [facility] INSURANCE CORRESPONDENCE 2023-06-05 06:01:00 Doc tor Unassigned, Brimson [facility] EXTERNAL PROVIDER - ADC CARDIOLOGY 2023-05-28 06:01:00 Doctor Unassigned, Brimson [facility] HB ECG ROUTINE & RHYTHM STRIP 2023-04-09 20:55:12 Max Wilson [facility] FLU VACC(),65+YR,0.5 ML,IM,ADJUVANTED,QUAD(FLU AD) 2023-04-09 20:50:32 Max Wilson [facility] CONSENT/REFUSAL FOR DIAGNOSIS AND TREATMENT 2023-04-09 20:06:27 Doctor Unassigned, Brimson [facility] EXTERNAL PROVIDER - ADC CARDIOLOGY 2021-11-09 05:01:00 Doctor Unassigned, Brimson [facility] HB ECG ROUTINE & RHYTHM STRIP 2021-09-28 18:12:50 Max Wilson [facility] Encounters Start Date/Time End Date/Time Encounter Type Admission Type Attending Clinicians Care Facility Care Department Encounter ID Source 2023-10-02 13:16:00 Outpatient Cristy Noble [facility] [id number] [facility] 2024-01-14 00:00:00 2024-01-14 11:07:09 Telephone Max Wilson [facility] 1.2.840.114 350.1.13.10 4.2.7.2.686 [id number] [facility] 2024-01-09 00:00:00 2024-01-09 10:09:23 Telephone Max Wilson [facility] 1.2.840.114 350.1.13.10 4.2.7.2.686 [id number] [facility] 2024-01-07 08:24:11 2024-01-07 23:59:00 Hospital Encounter Max Wilson AT [facility] 1.2.840.114 350.1.13.10 4.2.7.2.686 [id number] [facility] 2024-01-07 08:23:42 2024-01-07 08:23:42 Hospital Encounter Max Wilson AT [facility] 1.2.840.114 350.1.13.10 4.2.7.2.686 [id number] [facility] 2024-01-07 08:23:30 2024-01-07 08:23:30 Hospital Encounter Steve Jasonrohit ValeJuan Jose [facility] 1.2.840.114 350.1.13.10 4.2.7.2.686 [id number] [facility] 2024-01-07 08:23:18 2024-01-07 08:23:18 Outpatient R MAX WILSON [facility] [id number] [facility] 2024-01-07 08:23:18 2024-01-07 08:23:18 Hospital Encounter Steve Jasonrohit ValeJuan Jose [facility] 1.2.840.114 350.1.13.10 4.2.7.2.686 [id number] [facility] 2023-12-30 14:00:00 2023-12-30 15:09:49 Outpatient R MAX WILSON [facility] [id number] [facility] 2023-12-30 14:00:00 2023-12-30 15:09:49 Office Visit Max WilsonJuan Jose [facility] 1.2.840.114 350.1.13.10 4.2.7.2.686 [id number] [facility] 2023-11-05 13:30:00 2023-11-05 13:30:00 Outpatient R MAX WILSON [facility] [id number] [facility] 2023-10-16 00:00:00 2023-10-16 00:00:00 OFFICE VISIT ESTAB PT LEVEL 3 STLMLC STLMLC [id number] [facility] 2023-10-02 00:00:00 2023-10-02 00:00:00 OFFICE VISIT NEW PT LEVEL 3 STLMLC STLMLC [id number] [facility] 2023-08-20 11:00:00 2023-08-20 11:00:00 Outpatient MAX LE [facility] [id number] [facility] 2023-07-30 11:00:00 2023-07-30 11:00:00 Outpatient NICOLETTE FRITZ ROSE [id number] [facility] Cervantes 2023-07-30 00:00:00 2023-07-30 00:00:00 Outpatient MAX LE [facility] [id number] [facility] 2023-07-25 00:00:00 2023-07-25 00:00:00 Telephone Max Wilson [facility] 1.2.840.114 350.1.13.10 4.2.7.2.686 [id number] [facility] 2023-07-17 00:00:00 2023-07-17 00:00:00 Orders Only Doctor Unassigned, Brimson [facility] 1.2.840.114 350.1.13.10 4.2.7.2.686 [id number] [facility] 2023-07-10 15:30:00 2023-07-10 16:08:44 Outpatient R MAX WILSON [facility] [id number] [facility] 2023-07-10 15:30:00 2023-07-10 16:08:44 Office Visit Max WilsonHJuan Jose [facility] 1.2.840.114 350.1.13.10 4.2.7.2.686 [id number] [facility] 2023-07-08 18:40:00 2023-07-08 19:23:15 Outpatient JC BRYANT [facility] [id number] [facility] 2023-07-08 18:40:00 2023-07-08 19:23:15 Urgent Care Jc Miller Unknown, Attending [facility] 1.2.840.114 350.1.13.10 4.2.7.2.686 [id number] [facility] 2023-06-17 00:00:00 2023-06-17 00:00:00 Telephone Max Wilson [facility] 1.2.840.114 350.1.13.10 4.2.7.2.686 [id number] [facility] 2023-06-11 12:42:41 2023-06-11 23:59:00 Outpatient R MAX WILSON [facility] [id number] [facility] 2023-06-11 12:42:41 2023-06-11 23:59:00 Hospital Encounter Max Wilson [facility] 1.2.840.114 350.1.13.10 4.2.7.2.686 [id number] [facility] 2023-06-05 00:00:00 2023-06-05 00:00:00 Orders Only Doctor Unassigned, Brimson [place] [id number] 350.1.13.10 4.2.7.2.686 [id number] [facility] 2023-05-28 07:58:15 2023-05-28 07:58:15 Outpatient [facility] [id number] Torrey Otto 2023-05-28 00:00:00 2023-05-28 00:00:00 Orders Only Doctor Unassigned, Brimson [facility] 1.2840.114 350.1.13.10 4.2.7.2.686 [id number] [facility] 2023-05-27 15:22:46 2023-05-27 15:22:46 Outpatient [facility] [id number] Torrey Otto 2023-04-09 14:00:00 2023-04-09 15:15:19 Outpatient R MAX WILSON [facility] [id number] [facility] 2023-04-09 14:00:00 2023-04-09 15:15:19 Office Visit Max Wilson [facility] 1..840.114 350.1.13.10 4.2.7.2.686 [id number] [facility] 2023-04-09 00:00:00 2023-04-09 00:00:00 Orders Only Doctor Unassigned, Brimson [facility] 1..840.114 350.1.13.10 4.2.7.2.686 [id number] [facility] 2023-02-20 09:07:29 2023-02-20 09:07:29 Outpatient [facility] [id number] Torrey Otto 2023-02-14 16:06:03 2023-02-14 16:06:03 Outpatient [facility] [id number] Torrey Otto 2021-12-13 14:00:00 2021-12-13 14:00:00 Outpatient R MAX WILSON [facility] [id number] [facility] 2021-12-13 14:00:00 2021-12-13 14:00:00 Outpatient R MAX WILSON [facility] [id number] [facility] 2021-11-09 00:00:00 2021-11-09 00:00:00 Orders Only Doctor Unassigned, Brimson [facility] 1..840.114 350.1.13.10 4.2.7.2.686 [id number] [facility] 2021-10-18 16:00:00 2021-10-18 16:00:00 Outpatient R WILSON MAX [facility] [id number] [facility] 2021-10-11 00:00:00 2021-10-11 00:00:00 Orders Only Doctor Unassigned, Brimson [facility] 1.2.840.114 350.1.13.10 4.2.7.2.686 [id number] [facility] 2021-09-28 13:00:00 2021-09-28 13:43:00 Outpatient R STEVEJASONROHIT [facility] [id number] [facility] 2021-09-28 13:00:00 2021-09-28 13:43:00 Office Visit Max Wilson [facility] 1.2.840.114 350.1.13.10 4.2.7.2.686 [id number] [facility] 2021-09-28 13:00:00 2021-09-28 13:43:00 [id number] 2021-09-28 00:00:00 2021-09-28 00:00:00 Orders Only Doctor Unassigned, Brimson [facility] 1.2.840.114 350.1.13.10 4.2.7.2.686 [id number] [facility] Results Test Description Test Time Test Comments Results Result Co [facility]:39:23* Test Item Value Reference Range Interpretation Comme nts Height (test code = 7985970305) 65 in Weight (test code = 1766780749) 147 lbs Systolic BP (test code = 6786662343) 123 mmHg Diastolic BP (test code = 4155440679) 77 mmHg Heart Rate (test code = 2486874740) 74 bpm BSA (test code = 9153450445) 1.74 m2 LVIDD (test code = 9293342245) 4.20 cm Left Ventricular End Diastolic Volume by Teichholz Method (test code = 3625950) 77.0 mL IVS (test code = 2433897280) 1.45 cm Interventricular Septum Diastolic Thickness by 2D (test code = 4080042) 1.45 cm LVPWD (test code = 7396058228) 1.32 cm PW (test code = 6405807008) 1.32 cm 0.6-1.1 EF(Teich) (test code = 5235376128) 65.60 % LVIDS (test code = 6199369836) 2.70 cm Left Ventricular End Systolic Volume by Teichholz Method (test code = 6581926) 26.5 mL FS (test code = 0181669704) 36 % EF - 2D (test code = 19840836) 65.60 % LVOT diameter (test code = 7248647376) 2.00 cm LVOT area (test code = 2960693262) 3.10 cm2 ACS (test code = 2373650564) 2.15 cm Ao root diam (test code = 4852957491) 3.10 cm Aortic root (test code = 4274024468) 3.1 cm Ao root annulus (test code = 6208568925) 3.1 cm LA size (test code = 6847109664) 4.0 cm E wave decelartion time (test code = 0419647681) 0.30 s MV Peak E Kael (test code = 0448702015) 67.6 cm/s MV Peak A Kael (test code = 7812695606) 99.6 cm/s E/A ratio (test code = 4578261679) 0.68 ratio MV Prop V (test code = 7102026229) 41.60 cm/s Tapse (test code = 9508742035) 1.56 cm TR Peak Kael (test code = 4618237786) 220.0 cm/s Triscuspid Valve Regurgitation Peak Gradient (test code = 8078414284) 19.4 mmHg LVOT stroke volume (test code = 4682689274) 82.00 cm3 LVOT peak kael (test code = 1625314782) 110.6 cm/s LVOT mn grad (test code = 6043082060) 2.4 mmHg AV LVOT peak gradient (test code = 8149981368) 4.9 mmHg LVOT peak VTI (test code = 0487726683) 26.2 cm LV V1 mean (test code = 6886496698) 71.60 cm/s Aortic valve mean velocity (test code = 5359246997) 98.9 cm/s Ao peak kael (test code = 4372567719) 162.7 cm/s Ao VTI (test code = 5231136667) 34.1 cm AV area by cont VTI (test code = 7155636972) 2.4 cm2 AV area peak kael (test code = 4877241601) 2.1 cm2 Ao max PG (test code = 1359099839) 10.60 mm[Hg] AV peak gradient (test code = 1760012947) 10.6 mmHg AV valve area (test code = 5964236570) 2.40 cm2 AV mean gradient (test code = 7327911129) 4.6 mmHg Radiology Study observation (narrative) (test code = 99867-5) CADEN (test code = CADEN) ?Left?Ventricle: Left [...] apical, parasternal and subcostal views were obtained. [facility]. PYLORI (BREATH)2023-05-29 16:29:14* Test Item Value Reference Range Interpretation Comme nts H. PYLORI (BREATH) (test code = 44034) NEGATIVE NEGATIVE UNLESS OTHER FORD INDICATED, ALL TESTING PERFORMED AT [facility] [address] [place] [id number] WINDOW GLAZIER HELPER: MATT MADSEN M.D. CLIA NUMBER [id number] [place]. [id number] HEMOGLOBIN [id number] 04:19:57* Test Item Value Reference Range Interpretation Comme nts HEMOGLOBIN A1c (test code = 20190) 7.1 % 4.2-5.6 H [employer] GUIDELINES FOR HGB A1C: [...] TESTING OR LABORATORY CONSULTATION. ALBUMIN/CREATININE RATIO, URINE, [id number] 04:00:28* Test Item Value Reference Range Interpretation Comme nts CREATININE, URINE, CONC. (test code = 2072) 33.8 MG/DL NOT ESTAB ALBUMIN, URINE, RANDOM (test code = 17460) 0.6 MG/DL NOT ESTAB CALC ALBUMIN/CREAT, RND (test code = 50640) 18 MG/G <30 Note: Albumin/Cr eatinine ratio reference interval reflects ADA and NKF guidelines. UNLESS OTHERWISE INDICATED, ALL TESTING PERFORMED AT [facility] [address] [place] [address] WINDOW GLAZIER HELPER: MATT MADSEN M.D. CLIA NUMBER [id number] [place]. [id number] LIPID [id number] 03:39:34* Test Item Value Reference Range Interpretation [...] SPECIMENS. FOR MOREINFORMATION, SEE CLIENT ANNOUNCEMENT AT [email or web address] /[email or web address]-[email or web address] RISK RATIO LDL/HDL (test code = 223) 0.81 RATIO <3.22 COMPREHENSIVE METABOLIC [id number] 03:39:34* Test Item Value Reference Range Interpretation Comme nts GLUCOSE (test code = 2216) 149 MG/DL 70-99 H BUN (test code = 2207) 16 MG/DL 8-23 CREATININE (test code = 221) 0.59 MG/DL 0.60-1.30 L eGFR (2020 CKD-EPI) (test co de = 44258) 94 ML/MIN/1.73 >60 CALC BUN/CREAT (test code = 2235) 27 RATIO 6-28 SODIUM (test code = 223) 140 MEQ/L 133-146 POTASSIUM (test code = 2228) 4.8 MEQ/L 3.5-5.4 CHLORIDE (test code = 2215) 101 MEQ/L 95-107 CARBON DIOXIDE (test code = 2206) 28 MEQ/L 19-31 CALCIUM (test code = 2209) 9.8 MG/DL 8.5-10.5 PROTEIN, TOTAL (test code = 222) 6.9 G/DL 6.1-8.3 ALBUMIN (test code = 220) 4.5 G/DL 3.5-5.2 CALC GLOBULIN (test code = 2240) 2.4 G/DL 1.9-3.7 CALC A/G RATIO (test code = 2234) 1.9 RATIO 1.0-2.6 BILIRUBIN, TOTAL (test code = 220) 0.7 MG/DL <=1.2 ALKALINE PHOSPHATASE (test code = 2204) 84 U/L 40-142 AST (test code = 2218) 33 U/L 9-40 ALT (test code = 2219) 23 U/L 5-40 LIPID [id number] 06:02:27* Test Item Value Reference Range Interpretation Comme nts CHOLESTEROL (test code = 2210) 144 MG/DL <200 TRIGLYCERIDES (test code = 2232) 63 MG/DL <150 HDL CHOLESTEROL (test code = 2220) 51 MG/DL >39 CALC LDL CHOL (test code = 223) 79 MG/DL <100 NOTE: CALCULATED LDL IS BASED ON JOSE-CLEMENTE METHOD WHICHINCLUDES ADJUSTABLE TRIGLYCERIDE:VLDL CHOLESTEROL RATIO.THIS FACTOR VARIES BY MEASURED TRIGLYCERIDE AND NON-HDLCHOLESTEROL CONCENTRATIONS WITH INCREASED CALCULATED LDL SEENIN HIGHER TRIGLYCERIDE OR LOWER NON-HDL SPECIMENS. FOR MOREINFORMATION, SEE CLIENT ANNOUNCEMENT AT [email or web address] /CalcLDL-C RISK RATIO LDL/HDL (test code = 223) 1.55 RATIO <3.22 COMPREHENSIVE METABOLIC [id number] 06:02:27* Test Item Value Reference Range Interpretation Comme nts GLUCOSE (test code = 221) 131 MG/DL 70-99 H BUN (test code = 2207) 14 MG/DL 8-23 CREATININE (test code = 221) 0.68 MG/DL 0.60-1.30 eGFR (2020 CKD-EPI) (test code = 57000) 92 ML/MIN/1.73 >60 CALC BUN/CREAT (test code = 2235) 21 RATIO 6-28 SODIUM (test code = 223) 141 MEQ/L 133-146 POTASSIUM (test code = 2228) 4.9 MEQ/L 3.5-5.4 CHLORIDE (test code = 2215) 102 MEQ/L 95-107 CARBON DIOXIDE (test code = 2206) 26 MEQ/L 19-31 CALCIUM (test code = 220) 9.7 MG/DL 8.5-10.5 PROTEIN, TOTAL (test code = 222) 7.4 G/DL 6.1-8.3 ALBUMIN (test code = 220) 4.1 G/DL 3.5-5.2 CALC GLOBULIN (test code = 2240) 3.3 G/DL 1.9-3.7 CALC A/G RATIO (test code = 2234) 1.2 RATIO 1.0-2.6 BILIRUBIN, TOTAL (test code = 220) 0.7 MG/DL See_Comment [Automated me ssage] The system which generated this result transmitted reference range: <=1.2. The reference range was not used to interpret this result as normal/abnormal. ALKALINE PHOSPHATASE (test code = 2204) 76 U/L 40-142 AST (test code = 2218) 26 U/L 9-40 ALT (test code = 2219) 21 U/L 5-40 UNLESS OTHERWISE INDICATED, ALL TESTING [facility]FORMED [facility] [employer] [facility] [address] [place] [address] WINDOW GLAZIER HELPER: ELIANA PASTOR M.D. [place] NUMBER [id number] [facility] [place]. [id number] HEMOGLOBIN [id number] 04:46:28* Test Item Value Reference Range Interpretation Comme nts HEMOGLOBIN A1c (test code = 64766) 6.6 % 4.2-5.6 H [employer] GUIDELINES FOR HGB A1C: [...] OR LABORATORY CONSULTATION. CBC W/AUTO DIFF WITH [id number] 04:14:18* Test Item Value Reference Range Interpretation [...] = 1065) 0.0 /100 WBC'S See_Comment [Automated groSolara ge] The system which generated this result [...] 0.00-0.10 ABS NUCLEATED RBCS (test code = 41661) 0.00 K/UL 0.00-0.11 SCR MAMM BILATERAL REBECCA CAD [id number] 10:48:17- SCR MAMM BILATERAL REBECCA CAD DIGITALBILATERAL DIGITAL SCREENING MAMMOGRAM 3D/2D WITH CAD: 06/12/2018 CLINICAL: Asymptomatic. Digital breast tomosynthesis was performed in addition to routine CC and MLO views. Current mammographic images were evaluated by either a [employer] M-Vu or a [employer] Live ImageChecker CAD (computer aided detection system). Comparison is made to exams dated 03/01/2014 mammogram - [facility], 01/11/2016 mammogram, and 03/01/2014 mammogram - [facility]. The tissue of both breasts is heterogeneously [...] hide abnormalities. In compliance with [place] law (Henda's Law), your patient has been sent a [...] dense breast tissue.Charanjit Kendall M.D. rb/:06/24/2018 10:48:17 Parking Lot Laborer: Elyse Shepard MM, [facility] Mammographyletter sent: BIRADS 1-2 Normal Mammogram BI-RADS: 2 Benign Procedure Notes Date/Time Note Provider Source 2024-01-07 08:30:00 Jayla Christiansen is a 78 year old female received to Nuclear Medicine for Stress Test. Pt is AAOx3 and is in NAD. Pt identified using Name & . Pt endorses being NPO since 01/05 1800. Indication for this Stress Test is chest pain . Last caffeine intake @ 01/05/24 NM Tech monitoring is yovani Supervising physician dr flowers obtained consent at 1051 Time out completed 1053 Lexiscan 0.4mg/5mL injected at 1054, followed by 5mL NS flush. Pre Stress Test vitals are: BP 183/87 HR 62 Resp 16 O2 sat 99 Injection vitals are: BP 160/85 HR 96 Resp 18 O2 sat 99 Recovery vitals are: BP 176/85 HR 92 Resp 16 O2 sat 99 AN [facility]
[2024-04-27] MEDS ORDERED: HYDROCODONE/APAP 5/325 MG TAB ONE (08:53)
[2024-04-27 09:04] LABS: Absolute Eosinophils 0.1 K/uL (0-0.5); Absolute Lymphocytes (CBC) 1.3 K/uL (0.7-4.9); Absolute Monocytes 0.4 K/uL (0.1-1.3); Absolute Neutrophil 2.1 K/uL (1.8-8.0); Basophils % 0.7 % (0-1.3); Eosinophils % 3.4 % (0-4.4); Hematocrit 36.3 % (36.0-45.0); Hemoglobin 12.2 g/dL (12.0-15.0); Lymphocytes % 32.9 % (15.3-44.8); MCH 32.4 pg (27.0-35.0); MCHC 33.5 g/dL (32.0-36.0); MCV 96.6 fL (80-100); MPV 8.6 fL (7.6-11.3); Monocytes % 9.8 % (3.3-12.3); Neutrophils % 53.2 % (41.7-73.7); Platelets 191 thou/uL (152-406); RBC Red Blood Cell Count 3.76 M/uL (3.86-4.86); Red Cell Distribution Width 13.4 % (12.1-15.2)
[2024-04-27 09:22] LABS: Anion Gap 6.1 mEq/L (5.0-15.0); Potassium 4.1 mEq/L (3.5-5.1); Troponin High Sensitivity 7.9 pg/mL (<58.9)
--- NOTE | 2024-04-27 09:22 | RAD REPORT ---
EXAMINATION: CT MAXILLOFACIAL WITHOUT CONTRAST CLINICAL INDICATION: Facial pain status post fall TECHNIQUE: Axial images were obtained through the facial bones and orbits without intravenous contras t. Sagittal and coronal reconstructions were created from the data. One or more of the following dose reduction techniques were used: Automated exposure control, adjustment of the mA and/or kV accor ding to patient size, and/or iterative reconstruction. Unless otherwise specified, incidental findings do not require dedicated imaging follow-up. COMPARISON: No prior exam. FINDINGS: No fracture is seen. No TMJ dislocation Fluid within the sinuses not seen. The globes are intact. IMPRESSION: No fracture seen
--- NOTE | 2024-04-27 09:22 | RAD REPORT ---
EXAMINATION: CT HEAD WITHOUT CONTRAST CT CERVICAL SPINE WITHOUT CONTRAST CLINICAL INDICATION: Head and neck injury status post fall. Head and neck pain TECHNIQUE: Axial CT images from the skull base to the vertex without intravenous contrast. Axial CT i mages through the cervical spine were obtained without intravenous contrast. Sagittal and coronal reformatted images were created from the data set. Coronal and sagittal reformatted images were creat ed from the data set. One or more of the following dose reduction techniques were used: Automated exposure control, adjustment of the mA and/or kV according to patient size, and/or iterative reconstr uction. Unless otherwise specified, incidental findings do not require dedicated imaging follow-up. [id number]. Comparison: none FINDINGS: An intracranial bleed is not seen. Ventricles are normal in caliber. No significant hypodensity within the brain No extra-axial fluid collection. No fluid within the sinuses/mastoids No fracture or dislocation is seen involving the cervical spine. IMPRESSION: No acute intracranial abnormality noted A cervical fracture is not seen. If the patient continues to have symptoms to suggest acute STERILISATION TECHNICIAN/spinal pathology then MRI would be rec ommended
--- NOTE | 2024-04-27 09:27 | RAD REPORT ---
EXAM: CT CHEST, ABDOMEN AND PELVIS WITHOUT CONTRAST CLINICAL INDICATION: Chest and abdominal pain status post fall TECHNIQUE: CT chest, abdomen and pelvis was performed, without IV contrast, as per department protoco l. Axial, sagittal and coronal reconstructions were obtained. One or more of the following dose reduction techniques were used: Automated exposure control, adjustment of the mA and/or kV according to the patient size, and/or iterative reconstruction. Unless otherwise specified, incidental findings do not require dedicated imaging follow-up. The lack of IV and oral contrast limits evaluation of the mediastinum, isis, vessels, organs and jeanette l. COMPARISON: CT abdomen July 2023 FINDINGS: No pulmonary contusion. A mediastinal hematoma is not seen. No pleural effusion. No pericardial effusion. Liver, spleen, pancreas, adrenals kidneys and bladder do not demonstrate a traumatic injury. Small hepatic cyst. Tiny right renal calculi. Right renal cortical thinning. Extrarenal pelves are pr esent. Diverticula stem from colon without visualization of diverticulitis. There is no evidence of diverticulitis IMPRESSION: No acute traumatic injury visualized.
--- NOTE | 2024-04-27 09:40 | RAD REPORT ---
Procedure: Chest Single View HISTORY: Chest pain COMPARISON: July 2023 FINDINGS: The lungs appear clear of acute infiltrate. No significant pleural effusion noted. The heart is borderline enlarged. IMPRESSION: No acute abnormality is displayed.
--- NOTE | 2024-04-27 11:11 | ER ---
Nurse's Notes [facility] Name: Jayla Martin Age: 78 yrs Sex: Female : 1945 Arrival Date: 04/27/2024 Time: 08:13 Bed 6 Private MD: Diagnosis: Fall on same level, unspecified;Contusion of unspecified part of head, initial encounter;Contusion of front wall of thorax Presentation: 04/27 08:27 Chief complaint: Patient states: tripped and fell from standing position 5 days ago. Pt ss c/o pain to L side of face, R breast and R lateral chest wall pain as well as mid/ upper back pain. Coronavirus screen: Client denies travel out of the [place] in the last 14 days. Ebola Screen: Patient denies exposure to infectious person. Patient denies travel to an Ebola-affected area in the 21 days before illness onset. Initial Sepsis Screen: Does the patient meet any 2 criteria? No. Patient's initial sepsis screen is negative. Does the patient have a suspected source of infection? No. Patient's initial sepsis screen is negative. Risk Assessment: Do you want to hurt yourself or someone else? Patient reports no desire to harm self or others. Onset of symptoms was April 22, 2024. 08:27 Method Of Arrival: Ambulatory ss 08:27 Acuity: LIZETH 3 ss Triage Assessment: 08:30 General: Appears in no apparent distress. Behavior is appropriate for age. Pain: bp Complains of pain in face. EENT: No deficits noted. Neuro: No deficits noted. Cardiovascular: No deficits noted. Respiratory: No deficits noted. GI: No signs and/or symptoms were reported involving the gastrointestinal system. : No signs and/or symptoms were reported regarding the genitourinary system. Derm: No signs and/or symptoms reported regarding the dermatologic system. Musculoskeletal: No deficits noted. Historical: - Allergies: 08:28 No Known Allergies; ss - PMHx: 08:28 Diabetes - NIDDM; Hypertension; Rheumatoid Arthritis; ss - PSHx: 08:28 section; hernia repair; ss - Immunization history:: Client reports receiving the 2nd dose of the Covid vaccine. - Infectious Disease History:: Denies. - Social history:: Smoking status: Patient denies any tobacco usage or history of. Screenin:20 [facility] ED Fall Risk Assessment (Adult) History of falling in the last 3 months, ll1 including since admission Yes- single mechanical fall (1 pt) Confusion or Disorientation No (0 pts) Intoxicated or Sedated No (0 pts) Impaired Gait No (0 pts) Mobility Assist Device Used No (0 pt) Altered Elimination No (0 pt) Score/Fall Risk Level 0 - 2 = Low Risk Maintained a safe environment, Hourly rounding (assess needs \T\ fall precautionary measures) done. Abuse screen: Denies threats or abuse. Nutritional screening: No deficits noted. Tuberculosis screening: No symptoms or risk factors identified. Assessment: 09:19 General: Appears in no apparent distress. Behavior is calm, cooperative, appropriate ll1 for age. Pain: Complains of pain in face Quality of pain is described as aching. Neuro: Reports headache. Derm: Reports bruising noted L cheek. Musculoskeletal: Circulation, motion, and sensation intact. Capillary refill < 3 seconds, in bilateral fingers. Reports pain in R chest. 10:55 Reassessment: No changes from previously documented assessment. Patient and/or family ll1 updated on plan of care and expected duration. Pain level reassessed. Patient is alert, oriented x 3, equal unlabored respirations, skin warm/dry/pink. 11:34 Reassessment: Patient appears in no apparent distress at this time. No changes from ll1 previously documented assessment. Patient and/or family updated on plan of care and expected duration. Pain level reassessed. Patient is alert, oriented x 3, equal unlabored respirations, skin warm/dry/pink. Patient states feeling better. Vital Signs: 08:27 BP 173 / 87; Pulse 63; Resp 15; Temp 97.8(TE); Pulse Ox 100% on R/A; Weight 65.32 kg; ss Height 5 ft. 5 in. ; Pain 8/10; 11:35 BP 158 / 70; Pulse 54; Resp 16; Pulse Ox 100% ; Pain 6/10; ll1 08:27 Body Mass Index 23.96 (65.32 kg, 165.1 cm) ss 08:27 Pain Scale: Adult ss 11:35 Pain Scale: Adult ll1 ED Course: 08:15 Patient arrived in ED. im 08:17 Marshall Orozco PA is PHCP. cp 08:17 Nu Culp MD is Attending Physician. cp 08:28 Triage completed. ss 08:28 Arm band placed on right wrist. ss 08:37 Cipriano Cordon, RN is Primary Nurse. bp 08:50 Provided Education on: ER procedures and process. ll1 08:50 Inserted saline lock: 22 gauge in left antecubital area, using aseptic technique. Blood ll1 collected. Flushed with 10 mL NS. 09:04 CT Facial Bones W/O Con In Process Unspecified. EDMS 09:04 Head C Spine Mpr Wo Con In Process Unspecified. EDMS 09:04 Chest Abd Pelvis Wo Con In Process Unspecified. EDMS 09:14 XRAY Chest (1 view) In Process Unspecified. EDMS 09:21 Primary Nurse role handed off by Cipriano Cordon, ABDI 1 09:21 Kaden Coffman, ABDI is Primary Nurse. ll1 09:21 Patient has correct armband on for positive identification. Bed in low position. Call ll1 light in reach. Cardiac monitoring not applicable on this patient. 09:21 Door closed. Warm blanket given. ll1 11:34 No provider procedures requiring assistance completed. IV discontinued, intact, ll1 bleeding controlled, No redness/swelling at site. Pressure dressing applied. Administered Medications: 09:04 Drug: HYDROcodone-acetaminophen PO 5 mg-325 mg 1 tabs PO once Route: PO; bp 09:16 Follow up: Response: No adverse reaction bp 11:35 Follow up: Response: No adverse reaction; Pain is decreased; RASS: Alert and Calm (0) ll1 Medication: 09:21 VIS not applicable for this client. ll1 Outcome: 11:09 Discharge ordered by . cp 11:35 Discharged to home ambulatory, ll1 11:35 Condition: stable 11:35 Discharge instructions given to patient, family, Instructed on discharge instructions, follow up and referral plans. medication usage, Demonstrated understanding of instructions, follow-up care, medications, Prescriptions given X 1, 11:35 Patient left the ED. ll1 Signatures: Dispatcher [employer] EDMS Laine Bermudez RN RN ss Marshall Orozco PA PA Cipriano Carpenter, RN ABDI bp Kaden Coffman RN RN 1 Cassandra Cervantes
--- NOTE | 2024-04-27 11:11 | EDPHYS ---
Physician Documentation [facility] Name: Jayla Martin Age: 78 yrs Sex: Female : 1945 Arrival Date: 04/27/2024 Time: 08:13 Bed 6 Private MD: ED Physician Nu Culp HPI: 04/27 08:45 This 78 yrs old Female presents to ER via Ambulatory with complaints of Fall cp Injury. 08:45 Details of fall: The patient fell from an upright position, while walking, and struck cp wood nancy. Historical: - Allergies: 08:28 No Known Allergies; ss - PMHx: 08:28 Diabetes - NIDDM; Hypertension; Rheumatoid Arthritis; ss - PSHx: 08:28 section; hernia repair; ss - Immunization history:: Client reports receiving the 2nd dose of the Covid vaccine. - Infectious Disease History:: Denies. - Social history:: Smoking status: Patient denies any tobacco usage or history of. ROS: 08:50 Constitutional: Negative for body aches, chills, fever, poor PO intake, cp Exam: 09:20 ECG was reviewed by the Attending Physician. cp Vital Signs: 08:27 BP 173 / 87; Pulse 63; Resp 15; Temp 97.8(TE); Pulse Ox 100% on R/A; Weight 65.32 kg; ss Height 5 ft. 5 in. ; Pain 8/10; 11:35 BP 158 / 70; Pulse 54; Resp 16; Pulse Ox 100% ; Pain 6/10; ll1 08:27 Body Mass Index 23.96 (65.32 kg, 165.1 cm) ss 08:27 Pain Scale: Adult ss 11:35 Pain Scale: Adult ll1 MDM: 08:29 Medical Screening Exam initiated cp 04/27 08:44 Order name: Basic Metabolic Panel; Complete Time: 11:05 cp 12 11:05 Interpretation: Normal except: GLUC 137. cp 04/27 08:44 Order name: CBC with Diff; Complete Time: 11:05 cp 12 11:05 Interpretation: Normal except: WBC 3.90; RBC 3.76. cp 12 08:44 Order name: Troponin High Sensitivity; Complete Time: 11:05 cp 04/27 08:44 Order name: CT Facial Bones W/O Con; Complete Time: 11:05 cp 04/27 11:05 Interpretation: Report reviewed. cp 04/27 08:44 Order name: XRAY Chest (1 view); Complete Time: 11:05 cp 04/27 11:06 Interpretation: Report review. cp 04/27 08:48 Order name: Head C Spine Mpr Wo Con; Complete Time: 11:05 EDMS 04/27 11:06 Interpretation: Report reviewed. cp 04/27 08:49 Order name: Chest Abd Pelvis Wo Con; Complete Time: 11:05 EDMS 04/27 11:07 Interpretation: Report reviewed. cp 04/27 08:44 Order name: Labs collected and sent; Complete Time: 09:04 cp 04/27 08:44 Order name: EKG - Nurse/Tech; Complete Time: 09:17 cp EC:20 Rate is 56 beats/min. Rhythm is regular. WA interval is normal. QRS interval is normal. cp QT interval is normal. T waves are Inverted in lead aVR. Interpreted by me. Reviewed by me. Administered Medications: 09:04 Drug: HYDROcodone-acetaminophen PO 5 mg-325 mg 1 tabs PO once Route: PO; bp 09:16 Follow up: Response: No adverse reaction bp 11:35 Follow up: Response: No adverse reaction; Pain is decreased; RASS: Alert and Calm (0) ll1 Disposition Summary: 04/27/24 11:09 Discharge Ordered Notes: Location: Home cp Problem: new cp Symptoms: have improved cp Condition: Stable cp Diagnosis - Fall on same level, unspecified cp - Contusion of unspecified part of head, initial encounter cp - Contusion of front wall of thorax cp Followup: cp - With: Private Physician - When: 2 - 3 days - Reason: Worsening of condition Discharge Instructions: - Discharge Summary Sheet cp - Chest Contusion, Adult cp - Facial or Scalp Contusion cp - Head Injury, Adult cp - Blunt Chest Trauma cp Forms: - Medication Reconciliation Form cp - Antibiotic Education cp - Prescription Opioid Use cp - Patient Portal Instructions cp - Leadership Thank You Letter cp Prescriptions: - Celebrex 100 mg Oral capsule - take 1 tablet ORAL route 2 times per day with meals As needed take with food; cp 30 capsule; Refills: 0, Product Selection Permitted Signatures: Dispatcher [facility] Tana Portillo Shelby, RN RN Marshall Gong PA PA cp Peltier, Brian, RN RN bp Kaden Coffman RN ll1 Corrections: (The following items were deleted from the chart) 08:45 08:45 BASIC METABOLIC PANEL+C.LAB.BRZ ordered. EDMS EDMS 08:45 08:45 CBC+H.LAB.BRZ ordered. EDMS EDMS 08:45 08:45 TYPE AND SCREEN+BB.LAB.BRZ ordered. EDMS EDMS 08:45 08:45 Troponin High Sensitivity+C.LAB.BRZ ordered. EDMS EDMS 08:45 08:45 Head C Spine Cap Wo Con+CT.RAD.BRZ ordered. EDMS EDMS 08:45 08:45 Facial Bones W/ MPR+CT.RAD.BRZ ordered. EDMS EDMS 08:45 08:45 Chest Single View+RAD.RAD.BRZ ordered. EDMS EDMS 09:17 09:02 Labs - recollect needed ordered. bd ll1
[2024-04-27 15:42] VITALS: TEMP 97.8; O2SAT 100
[2024-04-27 15:48] VITALS: BP 158/70
--- NOTE | 2024-05-01 16:02 | EKG ---
Test Date: 2024-04-27 Test Time: 09:14:22 Lacquer Machine Feeder: BP MEASUREMENT RESULTS: Intervals: Rate: 56 OH: 172 QRSD: 94 QT: 472 QTc: 455 [place]: P: 35 OH: 172 QRS: 25 T: 30 INTERPRETIVE STATEMENTS: Sinus bradycardia Otherwise normal ECG Compared to ECG 07/27/2023 16:30:48 Sinus rhythm no longer present T-wave abnormality no longer present Prolonged QT interval no longer present Electronically Signed On 05-01-24 15:54:29 SUBMARINE WORKER by Claudio Corey
== END 2024-04-27 11:35 | disposition home or self-care (01) ==
LOC: ER 08:13
DX: S00.83XA Contusion of other part of head, initial encounter (principal); S20.219A Contusion of unspecified front wall of thorax, initial encounter; W18.30XA Fall on same level, unspecified, initial encounter; E11.9 Type 2 diabetes mellitus without complications; I10 Essential (primary) hypertension
CPT/HCPCS: 36415; 70450; 70486; 71045; 71250; 72125; 74176; 76377; 80048; 84484; 85025; 93005; 99284